=== PATIENT | male | born 1955 ===

== ENCOUNTER 2020-02-27 06:17 | Emergency (ER) | payer OTHER, MEDICAID, SELFPAY ==
--- NOTE | 2020-02-27 06:24 | XRR_ITS ---
PROCEDURE INFORMATION: Exam: XR Chest, 1 View Exam date and time: 02/27/2020 6:48 AM Age: 65 years old Clinical indication: Chest pain; Type not specified; Additional info: Cp TECHNIQUE: Imaging protocol: XR of the chest Views: 1 view. COMPARISON: No relevant prior studies available. FINDINGS: Lungs: Unremarkable. No consolidation. Pleural space: Unremarkable. No pleural effusion. No pneumothorax. Heart/Mediastinum: There is calcification of the aortic arch.. No cardiomegaly. Bones/joints: Unremarkable. XR/XR chest 1V portable [id number] IMPRESSION: No acute findings.
--- NOTE | 2020-02-27 06:24 | ECG_ITS ---
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 Measurements Intervals [place] Rate: 89 P: 67 NC: 145 QRS: 53 QRSD: 83 T: 8 QT: 344 QTc: 419 Interpretive Statements SINUS RHYTHM No previous ECG available for comparison Electronically Signed On 02-27-2020 9:20:58 BUCKLE FRAME SHAPER by Jhoana Dunham M.D. [id number]
[2020-02-27 06:29] VITALS: BP 153/97; PULSE 97; RESP 18; TEMP 36.9; O2SAT 94; BMI 34.2
[2020-02-27 06:45] LABS: Basophils % 0.4 %; Eosinophils # 0.2 10^3/uL (0.0-0.8); Eosinophils % 1.9 %; Hematocrit 45.9 % (42.0-52.0); Hemoglobin 14.6 g/dL (11.7-16.6); Lymphocytes # 1.9 10^3/uL (0.8-4.8); Lymphocytes % 20.6 %; Mean Corpuscular HGB Conc 31.8 g/dL (30.0-36.0); Mean Corpuscular Hemoglobin 28.6 pg (28.0-34.0); Mean Corpuscular Volume 89.8 fL (80-94); Mean Platelet Volume 8.9 fL (7.4-10.4); Monocytes # 0.6 10^3/uL (0.2-0.9); Monocytes % 6.7 %; Neutrophils % 69.8 %; Nucleated Red Blood Cells % 0 %; Platelet Count 219 10^3/cmm (130-400); Red Blood Count 5.11 10^6/uL (4.1-5.3); Red Cell Distribution Width 13.6 % (12.1-15.1); White Blood Count 9.3 10^3/uL (4.0-10.0)
[2020-02-27] MEDS: aspirin 81 mg Chew Tablet 324 MG PO (06:47)
--- NOTE | 2020-02-27 06:47 | W.ED.CHESTPA ---
HPI - Chest Pain General: Chief Complaint: Chest Pain Stated Complaint: CHEST PAIN/COUGH (HX COPD) Time Seen by Provider: 02/27/20 06:23 Source: patient Mode of arrival: ambulatory Limitations: no limitations History of Present Illness: HPI narrative: 65-year-old male who has a history of COPD. He states he started having chest pain last night. States he is also had some right-sided jaw pain that is been sharp in nature. States chest pain does improve with patient denies any shortness of breath. He has had no fevers or a cough. Denies any vomiting or diarrhea. Associated symptoms: Deny abdominal pain, dyspnea, fever(s), nausea or vomiting Review of Systems Const: Denies: fever(s), chills, body aches or change in appetite Eyes: Denies: blurry vision or eye discomfort ENMT: Denies: throat pain or dental pain Card: Reports: chest pain Resp: Denies: dyspnea GI: Denies: abdominal pain, nausea, vomiting or diarrhea : Denies: dysuria Musc: Denies: neck pain or back pain Skin/Breast: Denies: rash Neuro: Denies: headache(s) Psych: Denies: depression Narinder/Lymph: Denies: easy bruising All/Imm: Denies: urticaria Physical Exam Const: COMMON NORMALS: no acute distress, patient oriented x3 and healthy appearing HENMT: COMMON NORMALS: normocephalic and atraumatic HEAD & SCALP: normocephalic and atraumatic Eye: COMMON NORMALS: Equal, round and reactive pupils present and EOMs intact bilaterally PUPIL: Yes Equal, round and reactive pupils present Neck/C-Spine: COMMON NORMALS: full ROM and supple Chest: COMMONS NORMALS: normal inspection of the chest and normal palpation of entire chest wall Resp: COMMON NORMALS: normal respiratory effort, No retractions, No use of accessory muscles and clear to auscultation bilaterally AUSCULTATION: clear to auscultation bilaterally Cardio: COMMON NORMALS: regular rate, regular rhythm and No murmurs present (Cardio) RATE: regular rate RHYTHM: regular rhythm GI: COMMON NORMALS: Normal to inspection, nondistended, normoactive bowel sounds present, Soft to palpation, non-tender and no masses PALPATION: Yes Soft to palpation Extremity: COMMON NORMALS: normal to inspection and full ROM Neuro: COMMON NORMALS: patient oriented x3, moves all extremities and no focal motor deficits Psych: COMMON NORMALS: mental status grossly normal, Normal thought process present and cooperative THOUGHT PROCESS: Normal thought process present Skin: COMMON NORMALS: no rashes or lesions noted and no wounds GENERAL SKIN EXAM: no rashes or lesions noted Course Vital Signs: Vital signs: Vital Signs Temperature 98.5 F 02/27/20 06:29 Pulse Rate 70 02/27/20 09:20 Respiratory Rate 20 H 02/27/20 09:20 Blood Pressure 124/49 02/27/20 09:20 Pulse Oximetry 96 02/27/20 09:21 MDM - Chest Pain MDM Narrative: Medical decision making narrative: Ignacio presents here with chest pain that is atypical in nature. He been pain-free here and second troponin shows no change. X-ray here is normal as well. Also has pain in the right side of his neck. 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 Exam of the area is benign and your exam is normal. CT scan of his neck is negative. 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 He is to return if worsening. He has no signs of pulmonary embolism. Lab Data: Labs: Lab Results 02/27/20 02/27/20 02/27/20 Range/Units 06:37 06:37 06:37 WBC 9.3 (4.0-10.0) 10^3/ uL RBC 5.11 (4.1-5.3) 10^6/u L Hgb 14.6 (11.7-16.6) g/dL Hct 45.9 (42.0-52.0) % MCV 89.8 (80-94) fL MCH 28.6 (28.0-34.0) pg MCHC 31.8 (30.0-36.0) g/dL RDW 13.6 (12.1-15.1) % Plt Count 219 (130-400) 10^3/c mm MPV 8.9 (7.4-10.4) fL Neut % (Auto) 69.8 % Lymph % (Auto) 20.6 % [place] % (Auto) 6.7 % Eos % (Auto) 1.9 % Baso % (Auto) 0.4 % Neut # (Auto) 6.50 (1.8-7.7) 10^3/u L Lymph # (Auto) 1.9 (0.8-4.8) 10^3/u L [place] # (Auto) 0.6 (0.2-0.9) 10^3/u L Eos # (Auto) 0.2 (0.0-0.8) 10^3/u L Baso # (Auto) 0.0 (0.0-0.1) 10^3/u L Nucleated RBC % (a uto) 0 % Nucleated RBCs # 0.0 /100WBC Sodium 138 (136-145) mmol/L Potassium 3.7 (3.5-5.1) mmol/L Chloride 99 (98-107) mmol/L Carbon Dioxide 30 H (22-29) mmol/L Anion Gap 12.7 (5-19) BUN 16 (8-23) mg/dL Creatinine 1.2 (0.7-1.2) mg/dL GFR Calculation 60.4 L (90-130) mL/min Glucose 128 H (65-115) mg/dL Calculated Osmolal ity 289 (285-295) mOsm/k g Calcium 9.1 (8.5-10.5) mg/dL Total Bilirubin 0.5 (0.15-1.2) mg/dL AST 32 (0-40) U/L ALT 59 H (0-41) U/L Alkaline Phosphata se 101 (40-130) IU/L Troponin T Baselin e 32 H (0-15) ng/L Troponin T 120 Min [place] (0-15) ng/L Delta Troponin T (0-10) ABS# Total Protein 7.0 (6.6-8.7) g/dL Albumin 4.3 (3.5-5.2) g/dL Globulin 2.7 (1.3-4.6) g/dL 02/27/20 Range/Units 08:40 WBC (4.0-10.0) 10^3/ uL RBC (4.1-5.3) 10^6/u L Hgb (11.7-16.6) g/dL Hct (42.0-52.0) % MCV (80-94) fL MCH (28.0-34.0) pg MCHC (30.0-36.0) g/dL RDW (12.1-15.1) % Plt Count (130-400) 10^3/c mm MPV (7.4-10.4) fL Neut % (Auto) % Lymph % (Auto) % [place] % (Auto) % Eos % (Auto) % Baso % (Auto) % Neut # (Auto) (1.8-7.7) 10^3/u L Lymph # (Auto) (0.8-4.8) 10^3/u L [place] # (Auto) (0.2-0.9) 10^3/u L Eos # (Auto) (0.0-0.8) 10^3/u L Baso # (Auto) (0.0-0.1) 10^3/u L Nucleated RBC % (a uto) % Nucleated RBCs # /100WBC Sodium (136-145) mmol/L Potassium (3.5-5.1) mmol/L Chloride (98-107) mmol/L Carbon Dioxide (22-29) mmol/L Anion Gap (5-19) BUN (8-23) mg/dL Creatinine (0.7-1.2) mg/dL GFR Calculation (90-130) mL/min Glucose (65-115) mg/dL Calculated Osmolal ity (285-295) mOsm/k g Calcium (8.5-10.5) mg/dL Total Bilirubin (0.15-1.2) mg/dL AST (0-40) U/L ALT (0-41) U/L Alkaline Phosphata se (40-130) IU/L Troponin T Baselin e (0-15) ng/L Troponin T 120 Min [place] 30.56 H (0-15) ng/L Delta Troponin T -1.44 L (0-10) ABS# Total Protein (6.6-8.7) g/dL Albumin (3.5-5.2) g/dL Globulin (1.3-4.6) g/dL Imaging Data^: CXR: Attestation: I personally reviewed and interpreted this imaging study as follows: My impression: no acute abnormality Other CT: Attestation: I personally reviewed and interpreted this imaging study as follows: Radiologist's impression: [address] [place] [address] CT Scan Report Signed Patient: Ignacio Shelton Unit #: [id number] : 1955 Age/Sex: 65 / M ADM Date: 02/27/20 Loc: ER Room/Bed: Attending Dr: Ordering Provider/Ordering MD: Sánchez Dejesus MD Date of Service: 02/27/20 Procedure(s): CT neck w con* [id number] Accession Number(s): [id number] Report Number: [id number] PROCEDURE INFORMATION: Exam: CT Neck With Contrast Exam date and time: 02/27/2020 7:48 AM Age: 65 years old Clinical indication: Neck pain; Prior surgery; Surgery date: 6+ months; Surgery type: Right neck mass, right ear; Additional info: Right neck pain TECHNIQUE: Imaging protocol: Computed tomography images of the neck with intravenous contrast. Radiation optimization: All CT scans at this facility use at least one of these dose optimization techniques: automated exposure control; mA and/or kV adjustment per patient size (includes targeted exams where dose is matched to clinical indication); or iterative reconstruction. Contrast material: OMNIPAQUE 300; Contrast volume: 95 ml; Contrast route: INTRAVENOUS (IV); COMPARISON: CT neck w con* [id number] 07/23/2018 10:13 AM RADIATION DOSE METRICS: Total DLP (mGy-cm): 858.45 FINDINGS: Nasopharynx: Unremarkable. Oropharynx: Unremarkable. No significant tonsillar enlargement. Hypopharynx: Unremarkable. Larynx: Unremarkable. Normal epiglottis. Retropharyngeal space: Unremarkable. Submandibular/Parotid glands: Patient has undergone bilateral parotid surgery. Appears the patient has had right parotidectomy. Thyroid: Normal. No enlarged or calcified nodules. Lymph nodes: No adenopathy or other abnormal masses are seen in the neck. Trachea: Visualized trachea is unremarkable. Lungs: Unremarkable as visualized. Bones/joints: Degenerative disease is present in the cervical spine with joint space narrowing and sclerosis. There is multilevel neural foraminal narrowing predominantly at the C6-C7 level. Soft tissues: There is calcification the carotid bifurcations bilaterally. The aortic arch is calcified. CT/CT neck w con* [id number] IMPRESSION: 1. Patient has undergone bilateral parotid surgery. Right parotidectomy. 2. No mass or adenopathy is seen in the neck. 3. Atherosclerotic calcified aorta and carotid bifurcations. 4. 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 5. No acute abnormalities are seen in the neck. EKG Data^: EKG 1: Attestation: I personally reviewed and interpreted this EKG as follows: EKG interpretation date: 02/27/20 EKG interpretation time: 06:30 Interpretation: nsr hr [address] or t wave abnormalities qrs 83 qtc 390 EKG 2: Attestation: I personally reviewed and interpreted this EKG as follows: EKG interpretation date: 02/27/20 EKG interpretation time: 08:23 Interpretation: nsr hr [address] or t wave abnormalities qrs 91 qtc 405 Discharge Plan Discharge Patient Disposition: Home Clinical Impression: Chest pain Qualifiers: Chest pain type: unspecified Qualified Code(s): R07.9 - Chest pain, unspecified Condition: Stable Discharge Orders: Discharge Order (Routine); Ordered 02/27/20 Ordered By: Sánchez Dejesus Referrals: Elijah Maki DO [Primary Care Provider] - 1-3 days Discharge Diet: Advance as tolerated Discharge Activity: Resume usual activity Patient Instructions: Chest Pain (ED) Coding Level of Care Code ED Machine Straw Hat Presser for Chg Fwd Exam Comprehensive
[2020-02-27 06:48] VITALS: BP 153/97; PULSE 101; RESP 23; O2SAT 93
[2020-02-27 07:17] LABS: Alanine Aminotransferase 59 U/L (0-41); Albumin Level 4.3 g/dL (3.5-5.2); Alkaline Phosphatase 101 IU/L (40-130); Anion Gap 12.7 (5-19); Aspartate Amino Transferase 32 U/L (0-40); Blood Urea Nitrogen 16 mg/dL (8-23); Calcium 9.1 mg/dL (8.5-10.5); Carbon Dioxide 30 mmol/L (22-29); Chloride 99 mmol/L (98-107); Globulin 2.7 g/dL (1.3-4.6); Glomerular Filtration Rate 60.4 mL/min (90-130); Glucose 128 mg/dL (65-115); Osmolality Calculated 289 mOsm/kg (285-295); Potassium 3.7 mmol/L (3.5-5.1); Sodium 138 mmol/L (136-145); Total Bilirubin 0.5 mg/dL (0.15-1.2)
[2020-02-27 07:19] LABS: Troponin(5th) Baseline 32 ng/L (0-15)
--- NOTE | 2020-02-27 07:28 | CTR_ITS ---
PROCEDURE INFORMATION: Exam: CT Neck With Contrast Exam date and time: 02/27/2020 7:48 AM Age: 65 years old Clinical indication: Neck pain; Prior surgery; Surgery date: 6+ months; Surgery type: Right neck mass, right ear; Additional info: Right neck pain TECHNIQUE: Imaging protocol: Computed tomography images of the neck with intravenous contrast. Radiation optimization: All CT scans at this facility use at least one of these dose optimization techniques: automated exposure control; mA and/or kV adjustment per patient size (includes targeted exams where dose is matched to clinical indication); or iterative reconstruction. Contrast material: OMNIPAQUE 300; Contrast volume: 95 ml; Contrast route: INTRAVENOUS (IV); COMPARISON: CT neck w con* [id number] 07/23/2018 10:13 AM RADIATION DOSE METRICS: Total DLP (mGy-cm): 858.45 FINDINGS: Nasopharynx: Unremarkable. Oropharynx: Unremarkable. No significant tonsillar enlargement. Hypopharynx: Unremarkable. Larynx: Unremarkable. Normal epiglottis. Retropharyngeal space: Unremarkable. Submandibular/Parotid glands: Patient has undergone bilateral parotid surgery. Appears the patient has had right parotidectomy. Thyroid: Normal. No enlarged or calcified nodules. Lymph nodes: No adenopathy or other abnormal masses are seen in the neck. Trachea: Visualized trachea is unremarkable. Lungs: Unremarkable as visualized. Bones/joints: Degenerative disease is present in the cervical spine with joint space narrowing and sclerosis. There is multilevel neural foraminal narrowing predominantly at the C6-C7 level. Soft tissues: There is calcification the carotid bifurcations bilaterally. The aortic arch is calcified. CT/CT neck w con* [id number] IMPRESSION: 1. Patient has undergone bilateral parotid surgery. Right parotidectomy. 2. No mass or adenopathy is seen in the neck. 3. Atherosclerotic calcified aorta and carotid bifurcations. 4. 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 5. No acute abnormalities are seen in the neck. Radiation Dose CTDIVOL = (mGy): DLP = 858.45 (mGy-cm)
[2020-02-27] MEDS: iohexol 300 mg/mL 100 mL Btl IV (07:50)
--- NOTE | 2020-02-27 07:54 | PC.NURSE ---
pt back from ct by natasha
--- NOTE | 2020-02-27 08:24 | ECG_ITS ---
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 Measurements Intervals [place] Rate: 76 P: 70 NH: 150 QRS: 72 QRSD: 91 T: 11 QT: 374 QTc: 423 Interpretive Statements SINUS RHYTHM NONSPECIFIC T-WAVE ABNORMALITY Compared to ECG 02/27/2020 06:30:38 T-wave abnormality now present Electronically Signed On 02-27-2020 9:25:43 VEGETABLES COOK by Jhoana Dunham M.D. [email or web address]/[id number]
[2020-02-27 08:32] VITALS: BP 116/86; PULSE 73; RESP 26; O2SAT 96
[2020-02-27 09:20] VITALS: BP 124/49; PULSE 70; RESP 20; O2SAT 82
--- NOTE | 2020-02-27 09:20 | PC.NURSE ---
Pt noted to drop to 82% on room air while sleeping. Pt reports Cpap use at home at night. Pt placed on 2LNC and oxygen sats increased to 96%. Pt denies needs at this time.
[2020-02-27 09:21] VITALS: O2SAT 96
[2020-02-27 09:25] LABS: Troponin 5 2HR 30.56 ng/L (0-15); Troponin 5 2HR Delta -1.44 ABS# (0-10)
[2020-02-27 09:44] VITALS: BP 180/95; PULSE 75; RESP 17; O2SAT 97
== END 2020-02-27 09:44 | disposition home or self-care (01) ==
PROVIDERS: Emergency Provider Emergency Medicine; Family Provider Emergency Medicine Emergency Medical Services; PCP Emergency Medicine Emergency Medical Services
DX: R07.9 Chest pain, unspecified (principal)
CPT/HCPCS: 12345; 36415; 70491; 71045; 80053; 84484; 85025; 93005; 99283; 99284; Q9967

== ENCOUNTER 2021-06-25 22:36 | Inpatient (IN) | payer OTHER, MEDICAID, SELFPAY ==
--- NOTE | 2021-06-25 22:40 | ECG_ITS ---
[facility] Test Date: 2021-06-25 Pat Name: Ignacio Shelton Department: Room: 111 Gender: Male Behavioral Health Specialist: : 1955 Requested By: Sánchez Dejesus Order Number: [id number] Wanda MD: Gonzales Brasher M.D. Measurements Intervals [place] Rate: 69 P: 52 RI: 145 QRS: -9 QRSD: 77 T: -19 QT: 351 QTc: 376 Interpretive Statements SINUS RHYTHM NONSPECIFIC ST & T-WAVE ABNORMALITY Compared to ECG 02/27/2020 08:23:55 No significant changes Electronically Signed On 06-26-2021 17:34:45 SIGNAL MAINTAINER by Gonzales Brasher M.D. [id number] f
--- NOTE | 2021-06-25 22:40 | XRR_ITS ---
PROCEDURE INFORMATION: Exam: XR Chest Exam date and time: 06/25/2021 10:40 PM Age: 66 years old Clinical indication: Chest pressure; Prior surgery; Surgery type: Coronary stents; Patient HX: C/O chest pain. ; Additional info: Cp TECHNIQUE: Imaging protocol: XR of the chest. Views: 1 view. COMPARISON: CR XR chest 1V portable [id number] 02/27/2020 6:39 AM FINDINGS: Lungs: Unremarkable. No consolidation. Pleural spaces: Unremarkable. No pleural effusion. No pneumothorax. Heart/Mediastinum: Cardiomegaly. Bones/joints: Unremarkable. XR/XR chest 1V portable [id number] IMPRESSION: Cardiomegaly, negative for infiltrate
[2021-06-25 22:42] VITALS: BP 149/79; PULSE 105; RESP 18; TEMP 36.5; O2SAT 96; BMI 33.7
--- NOTE | 2021-06-25 22:48 | W.ED.CHESTPA ---
HPI - Chest Pain General: Chief Complaint: Chest Pain Stated Complaint: Possible Heart Attack Time Seen by Provider: 06/25/21 22:39 Source: patient Mode of arrival: ambulatory Limitations: no limitations History of Present Illness: 66-year-old male who states he been having intermittent chest pains over the last 3 weeks. States that he does have a history of coronary artery disease had multiple stents placed he states last on roughly 2 to 3 years ago at [facility]. He states he has been having increasing pain along with shortness of breath along with some leg swelling he has no known history of congestive heart failure does have a history of COPD wears 2 L at baseline. States pain currently is a 2 out of 10 denies any nausea. Denies any fevers. Associated symptoms: Reports dyspnea; Deny abdominal pain, fever(s), nausea or vomiting Review of Systems Const: Denies: fever(s), chills, body aches or change in appetite Eyes: Denies: blurry vision or eye discomfort ENMT: Denies: throat pain or dental pain Card: Reports: chest pain Resp: Reports: dyspnea GI: Denies: abdominal pain, nausea, vomiting or diarrhea : Denies: dysuria Musc: Denies: neck pain or back pain Skin/Breast: Denies: rash Neuro: Denies: headache(s) Psych: Denies: depression Narinder/Lymph: Denies: easy bruising All/Imm: Denies: urticaria PFSH ED PFSH: Medical History (Updated 06/25/21 @ 23:59 by Sánchez Dejesus MD) Coronary artery disease Social History (Updated 06/25/21 @ 22:51 by Sánchez Dejesus MD) Substance/Drug Use: never Physical Exam Const: COMMON NORMALS: patient oriented x3 and healthy appearing HENMT: COMMON NORMALS: normocephalic and atraumatic HEAD & SCALP: normocephalic and atraumatic Eye: COMMON NORMALS: Equal, round and reactive pupils present and EOMs intact bilaterally PUPIL: Yes Equal, round and reactive pupils present Neck/C-Spine: COMMON NORMALS: full ROM and supple Chest: COMMONS NORMALS: normal inspection of the chest and normal palpation of entire chest wall Resp: COMMON NORMALS: normal respiratory effort, No retractions, No use of accessory muscles and clear to auscultation bilaterally AUSCULTATION: clear to auscultation bilaterally Cardio: COMMON NORMALS: regular rate, regular rhythm and No murmurs present (Cardio) RATE: regular rate RHYTHM: regular rhythm GI: COMMON NORMALS: Normal to inspection, nondistended, normoactive bowel sounds present, Soft to palpation, non-tender and no masses PALPATION: Yes Soft to palpation Extremity: COMMON NORMALS: full ROM NARRATIVE EXTREMITY EXAM: 1+ edema Neuro: COMMON NORMALS: patient oriented x3, moves all extremities and no focal motor deficits Psych: COMMON NORMALS: mental status grossly normal, Normal thought process present and cooperative THOUGHT PROCESS: Normal thought process present Skin: COMMON NORMALS: no rashes or lesions noted and no wounds GENERAL SKIN EXAM: no rashes or lesions noted Course Vital Signs: Vital signs: Vital Signs Temperature 97.7 F 06/25/21 22:42 Pulse Rate 72 06/25/21 23:22 Respiratory Rate 16 06/25/21 23:22 Blood Pressure 115/48 06/25/21 23:22 Pulse Oximetry 94 06/25/21 23:22 MDM - Chest Pain Medical Decision Making Patient presents here with chest pain is since resolved he does have an elevated troponin here consistent with a likely NSTEMI CT angio here is negative I spoke to hospital along with student nurse will admit at this time patient given Lovenox here. Lab Data : 06/25/21 22:48 06/25/21 22:48 Radiology Impressions Chest X-Ray 06/25/21 22:40 IMPRESSION: Cardiomegaly, negative for infiltrate Chest CTA 06/25/21 23:11 IMPRESSION: 1. Negative for pulmonary embolus. 2. Scattered prominent mediastinal lymph nodes measuring up to 12.5 mm, nonspecific. 3. Bilateral renal cysts, negative for follow-up advised. 4. Mild emphysematous changes suspected. 5. Lingular atelectasis. 6. Coronary artery atherosclerotic calcifications. Laboratory Results WBC 8.7 10^3/uL (4.0-10.0) 06/25/21 22:48 RBC 4.47 10^6/uL (4.1-5.3) 06/25/21 22:48 Hgb 13.1 g/dL (11.7-16.6) 06/25/21 22:48 Hct 41.9 % (42.0-52.0) L 06/25/21 22:48 MCV 93.7 fl (80-94) 06/25/21 22:48 MCH 29.3 pg (28.0-34.0) 06/25/21 22:48 MCHC 31.3 g/dL (30.0-36.0) 06/25/21 22:48 RDW 13.3 % (12.1-15.1) 06/25/21 22:48 Plt Count 213 10^3/cmm (130-400) 06/25/21 22:48 MPV 9.0 fL (7.4-10.4) 06/25/21 22:48 Neut % (Auto) 76.9 % 06/25/21 22:48 Lymph % (Auto) 12.3 % 06/25/21 22:48 [place] % (Auto) 6.9 % 06/25/21 22:48 Eos % (Auto) 3.0 % 06/25/21 22:48 Baso % (Auto) 0.6 % 06/25/21:48 Neut # (Auto) 6.67 10^3/uL (1.8-7.7) 06/25/21 22:48 Lymph # (Auto) 1.1 10^3/uL (0.8-4.8) 06/25/21 22:48 [place] # (Auto) 0.6 10^3/uL (0.2-0.9) 06/25/21 22:48 Eos # (Auto) 0.3 10^3/uL (0.0-0.8) 06/25/21 22:48 Baso # (Auto) 0.1 10^3/uL (0.0-0.1) 06/25/21 22:48 Nucleated RBC % (auto) 0 % 06/25/21:48 Nucleated RBCs # 0.0 /100WBC 06/25/21 22:48 PT 13.10 SECONDS (12.1-14.9) 06/25/21 22:48 INR 0.96 (0.8-1.2) 06/25/21 22:48 D-Dimer 0.96 ug/mIFEU (0-0.59) H 06/25/21 22:48 Sodium 137 mmol/L (136-145) 06/25/21 22:48 Potassium 4.1 mmol/L (3.5-5.1) 06/25/21 22:48 Chloride 97 mmol/L (98-107) L 06/25/21 22:48 Carbon Dioxide 27 mmol/L (22-29) 06/25/21 22:48 Anion Gap 17.1 (5-19) 06/25/21 22:48 BUN 13 mg/dL (8-23) 06/25/21 22:48 Creatinine 1.1 mg/dL (0.7-1.2) 06/25/21 22:48 GFR Calculation 66.6 mL/min (90-130) L 06/25/21 22:48 Glucose 277 mg/dL (65-115) H 06/25/21 22:48 Calculated Osmolality 294 mOsm/kg (285-295) 06/25/21 22:48 Calcium 9.2 mg/dL (8.5-10.5) 06/25/21 22:48 Total Bilirubin 0.4 mg/dL (0.15-1.2) 06/25/21 22:48 AST 26 U/L (0-40) 06/25/21 22:48 ALT 22 U/L (0-41) 06/25/21 22:48 Alkaline Phosphatase 77 IU/L (40-130) 06/25/21 22:48 Troponin T Baseline 404 ng/L (0-15) H* 06/25/21 22:48 NT-Pro-B Natriuret Pep 575 pg/mL (0-125) H 06/25/21 22:48 Total Protein 6.9 g/dL (6.6-8.7) 06/25/21 22:48 Albumin 4.1 g/dL (3.5-5.2) 06/25/21 22:48 Globulin 2.8 g/dL (1.3-4.6) 06/25/21 22:48 EKG Data EKG 1: I personally reviewed and interpreted this EKG as follows: EKG interpretation date: 06/25/21 EKG interpretation time: 22:46 Interpretation: nsr hr [address] or t wave abnormalities qrs 77 qtc 370 Discharge Plan Discharge Patient Disposition: Admitted As Inpatient Clinical Impression: Non-ST elevation NC (NSTEMI) Coding Level of Care Code ED Hand Method Lasting Machine Operator for Chg Fwd Exam Comprehensive
[2021-06-25 22:52] LABS: Basophils # 0.1 10^3/uL (0.0-0.1); Basophils % 0.6 %; Eosinophils # 0.3 10^3/uL (0.0-0.8); Hematocrit 41.9 % (42.0-52.0); Hemoglobin 13.1 g/dL (11.7-16.6); Lymphocytes # 1.1 10^3/uL (0.8-4.8); Lymphocytes % 12.3 %; Mean Corpuscular HGB Conc 31.3 g/dL (30.0-36.0); Mean Corpuscular Hemoglobin 29.3 pg (28.0-34.0); Mean Corpuscular Volume 93.7 fl (80-94); Monocytes # 0.6 10^3/uL (0.2-0.9); Monocytes % 6.9 %; Neutrophils # 6.67 10^3/uL (1.8-7.7); Neutrophils % 76.9 %; Nucleated Red Blood Cells % 0 %; Platelet Count 213 10^3/cmm (130-400); Red Blood Count 4.47 10^6/uL (4.1-5.3); Red Cell Distribution Width 13.3 % (12.1-15.1); White Blood Count 8.7 10^3/uL (4.0-10.0)
[2021-06-25 23:04] LABS: INR 0.96 (0.8-1.2)
[2021-06-25 23:07] LABS: D Dimer 0.96 ug/mIFEU (0-0.59)
[2021-06-25] MEDS: aspirin 81 mg Chew Tablet 324 MG PO (23:11)
--- NOTE | 2021-06-25 23:11 | CTR_ITS ---
PROCEDURE INFORMATION: Exam: CTA Chest With Contrast Exam date and time: 06/25/2021 11:11 PM Age: 66 years old Clinical indication: Pain and abnormal findings; Abnormal diagnostic tests; Elevated d-dimer; Chest pressure; Prior surgery; Surgery type: Coronary stents; Patient HX: Chest pain with elevated d dimer. ; Additional info: SOB TECHNIQUE: Imaging protocol: Computed tomographic angiography of the chest with contrast. 3D rendering (Not supervised by radiologist): MIP and/or 3D reconstructed images were created by the technologist. Radiation optimization: All CT scans at this facility use at least one of these dose optimization techniques: automated exposure control; mA and/or kV adjustment per patient size (includes targeted exams where dose is matched to clinical indication); or iterative reconstruction. Contrast material: OMNI 350; Contrast volume: 61 ml; Contrast route: INTRAVENOUS (IV); COMPARISON: CR (CHEST, ) 06/25/2021 10:50 PM RADIATION DOSE METRICS: Total DLP (mGy-cm): 557.87 FINDINGS: Pulmonary arteries: Normal. No pulmonary emboli. Aorta: Unremarkable. No aortic aneurysm. No aortic dissection. Lungs: Mild emphysematous changes suspected. Lingular atelectasis. Pleural spaces: Unremarkable. No pneumothorax. No pleural effusion. Heart: Coronary artery atherosclerotic calcifications. Lymph nodes: Scattered prominent mediastinal lymph nodes measuring up to 12.5 mm, nonspecific. Kidneys and ureters: Bilateral renal cysts, negative for follow-up advised. Bones/joints: Unremarkable. No acute fracture. Soft tissues: Unremarkable. CT/CT angio chest PE protcl [id number] IMPRESSION: 1. Negative for pulmonary embolus. 2. Scattered prominent mediastinal lymph nodes measuring up to 12.5 mm, nonspecific. 3. Bilateral renal cysts, negative for follow-up advised. 4. Mild emphysematous changes suspected. 5. Lingular atelectasis. 6. Coronary artery atherosclerotic calcifications.
[2021-06-25 23:21] LABS: Troponin(5th) Baseline 404 ng/L (0-15)
[2021-06-25 23:22] VITALS: BP 115/48; PULSE 72; RESP 16; O2SAT 94
[2021-06-25 23:23] LABS: Alanine Aminotransferase 22 U/L (0-41); Albumin Level 4.1 g/dL (3.5-5.2); Alkaline Phosphatase 77 IU/L (40-130); Anion Gap 17.1 (5-19); Aspartate Amino Transferase 26 U/L (0-40); Blood Urea Nitrogen 13 mg/dL (8-23); Calcium 9.2 mg/dL (8.5-10.5); Carbon Dioxide 27 mmol/L (22-29); Chloride 97 mmol/L (98-107); Globulin 2.8 g/dL (1.3-4.6); Glomerular Filtration Rate 66.6 mL/min (90-130); Glucose 277 mg/dL (65-115); NT Pro B Type Natriuretic Pept 575 pg/mL (0-125); Osmolality Calculated 294 mOsm/kg (285-295); Potassium 4.1 mmol/L (3.5-5.1); Sodium 137 mmol/L (136-145); Total Bilirubin 0.4 mg/dL (0.15-1.2); Total Protein 6.9 g/dL (6.6-8.7)
[2021-06-25] MEDS: iohexol 350 mg/mL 100 mL Btl IV (23:33)
[2021-06-25] MEDS: enoxaparin 100 mg/mL Syringe SUBCUT (23:39)
[2021-06-26] VITALS (61 sets, daily range): BP systolic 105–176; BP diastolic 9–98; PULSE 57–93; RESP 14–30; TEMP 35.8–36.6; O2SAT 87–99; BMI 33.7
--- NOTE | 2021-06-26 00:28 | USCV_ITS ---
Ignacio Shelton Age: 66 Gender: M : 1955 Exam Date: 06/26/2021 03:12 Ordering Phys: Nikki Mace MD Technologist: João Whittaker [place] [facility] [place]: [place] BP: 139 / 70 HR: 70 Rhythm: Sinus Technical Quality: Adequate MEASUREMENTS (Male / Female) Normal Values 2D ECHO LV Diastolic Diameter PLAX 4.0 cm 4.2 - 5.9 / 3.9 - 5.3 cm LV Systolic Diameter PLAX 2.6 cm IVS Diastolic Thickness 1.4 cm 0.6 - 1.0 / 0.6 - 0.9 cm IVS Systolic Thickness 1.7 cm LVPW Diastolic Thickness 2.1 cm 0.6 - 1.0 / 0.6 - 0.9 cm LVPW Systolic Thickness 1.7 cm LVOT Diameter 2.5 cm LV Ejection Fraction 2D Teich 64.3 % LV Ejection Fraction MOD 2C 58.9 % LV Ejection Fraction 2C AL 60.2 % LA Diameter 3.9 cm LA Width 5.1 cm LA Height 5.1 cm RA Width 3.3 cm RA Height 5.8 cm Aorta at Sinotubular Diameter 2.6 cm M-MODE Aortic Annulus Diameter 3.5 cm LA Ao Ratio MM 1.3 MV E Point Septal Separation 1.4 cm DOPPLER AV Peak Velocity 163.8 cm/s LVOT Peak Velocity 91.0 cm/s AV Area Cont Eq vti 2.5 cm squared AV Area Cont Eq pk 2.7 cm squared MV Peak Velocity 111.0 cm/s MV Area PHT 3.2 cm squared Mitral E to A Ratio 1.0 MV E' Velocity 57.5 cm/s Mitral E to MV E' Ratio 9.9 Mitral E to LV E' Lateral Ratio 8.0 Mitral E to LV E' Septal Ratio 13.1 TR Peak Velocity 200.7 cm/s TR Peak Gradient 16.1 mmHg TR Mean Velocity 169.0 cm/s TR Mean Gradient 12.9 mmHg TR Velocity Time Integral 53.5 cm Right Atrial Pressure 10.0 mmHg Pulmonary Artery Systolic Pressu 26.1 mmHg PV Peak Velocity 119.0 cm/s RV Acceleration Time 0.1 s RV Ejection Time 0.3 s RV AcT/ET 0.4 FINDINGS Left Ventricle Normal left ventricular size. LV systolic function is normal with EF of 55-60%. No regional wall motion abnormalities. Diastolic function is normal Right Ventricle The right ventricle is normal in size and function. Right Atrium The right atrium is normal in size. Left Atrium The left atrium is normal in size. Mitral Valve Structurally normal mitral valve without significant stenosis or prolapse. There is trace mitral regurgitation. Aortic Valve Aortic valve is thickened. No significant stenosis. There is mild aortic regurgitation. Tricuspid Valve Structurally normal tricuspid valve without significant stenosis or regurgitation. Insufficient TR jet to calculate RVSP Pulmonic Valve Not well visualized Pericardium Normal pericardium without effusion. Aorta Normal ascending aorta dimension. CONCLUSIONS LV systolic function is normal with EF of 55-60% Diastolic function is normal Trace mitral regurgitation Aortic valve is thickened. Mild aortic regurgitation No comparison studies are available Gonzales Brasher MD (Electronically Signed) Final Date: 26 June 2021 17:26 S
--- NOTE | 2021-06-26 00:30 | PM.HP ---
Providers/Chief Complaint Admitting Physician: Nikki Mace MD Primary Care Provider: Elijah Maki DO Chief Complaint: Possible Heart Attack History of Present Illness Ignacio Shelton is a 66 year old male with PMh HTN and CAD status post cardiac stent today at [facility] 3 years ago. Presented to the ER today complaining of chest pain which started about 1 week ago. Reports that this is mostly with exertion, no significant benefit with rest. Denies any current radiation. Patient has COPD and a chronic cough, states cough is not significantly changed from his baseline. He is requiring 2 L/min supplemental O2. States he takes both aspirin and Plavix, however I do not have a drug list at this present time for review. Diagnostics in the ER today shows sinus rhythm with occasional VPCs baseline troponin is at 400, 2-hour troponin at 439, positive delta at 2 hours of 35.4. Denies any current chest pain at time of assessment. Review of Systems General: Reports: 10 or more systems reviewed and unremarkable except in HPI and below Const: Denies: fever(s), chills or body aches Eyes: Denies: change in vision, blurry vision or photophobia ENMT: Reports: hoarseness; Denies: throat pain, enlarged tonsils, odynophagia or nasal congestion Card: Denies: chest pain, palpitations, irregular heart rhythm, edema, swelling of feet/ankles, lightheadedness, pre-syncope, dyspnea on exertion or orthopnea Resp: Denies: dyspnea, productive cough, non-productive cough, wheezing, stridor, pain on inspiration, change in phlegm color, hemoptysis or chest congestion GI: Denies: abdominal pain, nausea, vomiting, hematemesis, coffee ground emesis, dysphagia, heartburn, diarrhea, constipation, GI cramping, change in stool character, hematochezia or melena : Denies: flank pain, dysuria, urinary frequency, urinary urgency, urinary hesitancy or hematuria Musc: Denies: neck pain, back pain, extremity pain, joint swelling, joint warmth or deformity Neuro: Denies: headache(s), numbness in extremities, weakness in extremities, sensory changes, difficulty walking, frequent falls, dizziness, vertigo, behavioral changes, Slurred speech present or seizure-like activity Psych: Denies: anxiety, depression, suicidal ideation or homicidal ideation Endo: Denies: polyuria, polydipsia, tired all the time, cold intolerance or hot flashes Narinder/Lymph: Denies: easy bruising or easy bleeding Medications/Allergies Allergies Allergy/AdvReac Type Severity Reaction Status Date / Time codeine Allergy ADR-Seizure Verified 06/25/21 22:42 PFSH Acute PFSH: Medical History (Updated 06/26/21 @ 06:55 by Nikki Mace MD) Coronary artery disease Social History Substance/Drug Use: never Vitals/I&O/Wt Last Vital Signs Temp 97.7 F 06/25/21 22:42 Pulse 72 06/25/21 23:22 Resp 16 06/25/21 23:22 BP 115/48 06/25/21 23:22 Pulse Ox 94 06/25/21 23:22 Weight last 48 hrs Weight 103.873 kg Physical Exam Const: COMMON NORMALS: no acute distress, average body habitus, patient oriented x3, no limitations, healthy appearing, alert and well nourished HENMT: COMMON NORMALS: normocephalic and atraumatic HEAD & SCALP: normocephalic and atraumatic Eye: COMMON NORMALS: Equal, round and reactive pupils present, EOMs intact bilaterally, conjunctivae normal and no scleral icterus CONJUNCTIVA: Yes conjunctivae normal PUPIL: Yes Equal, round and reactive pupils present Neck/C-Spine: COMMON NORMALS: no JVD Resp: COMMON NORMALS: normal respiratory effort, No retractions, No use of accessory muscles, clear to auscultation bilaterally and percussion normal AUSCULTATION: clear to auscultation bilaterally PERCUSSION: percussion normal Cardio: COMMON NORMALS: no JVD, regular rate, regular rhythm, S1 normal heart sound present, S2 normal heart sound present, No gallops present (Cardio), No clicks present (Cardio), No murmurs present (Cardio), No rub (Cardio) and Peripheral pulses 2+ throughout RATE: regular rate RHYTHM: regular rhythm HEART SOUNDS: S1 normal heart sound present and S2 normal heart sound present PERIPHERAL PULSES: Peripheral pulses 2+ throughout GI: COMMON NORMALS: Normal to inspection, nondistended, normoactive bowel sounds present, Soft to palpation, non-tender, No hepatosplenomegaly present, no masses and no bruits PALPATION: Yes Soft to palpation and Yes No hepatosplenomegaly present Extremity: COMMON NORMALS: normal to inspection, full ROM, capillary refill normal, no joint enlargement, no clubbing, cyanosis or edema, no calf tenderness and no pedal edema Neuro: COMMON NORMALS: patient oriented x3, CN's II-XII intact bilaterally, moves all extremities, no focal motor deficits, no sensory deficits noted, deep tendon reflexes 2+ bilaterally and gait normal SENSORIUM/ORIENTATION: Yes alert Psych: COMMON NORMALS: mental status grossly normal, Normal thought process present, cooperative, normal affect, speech normal, activity/motor behavior normal, denies hallucinations, denies homicidal ideation and denies suicidal ideation SPEECH: Yes normal speech THOUGHT PROCESS: Normal thought process present Skin: COMMON NORMALS: no rashes or lesions noted, no wounds, turgor normal, no jaundice, no petechiae and no mottling GENERAL SKIN EXAM: no rashes or lesions noted and turgor normal Data : 06/25/21 22:48 06/25/21 22:48 A&P Assessment and plan (1) Non-ST elevation NE (NSTEMI): Admit to CSU in view of NSTEMI. Given first dose of full dose Lovenox and aspirin 325 mg. Continue aspirin 81 mg p.o. daily, start atorvastatin 40 mg p.o. at bedtime. Obtain medication list, patient states he is also additionally on Plavix. States being compliant with all his medications but that his knows more details about his medication list. Continue anticoagulation with Lovenox 1 mg/kg every 12 hours. CTA negative for PE. Currently oxygen requirement between room air to 2 L/min which patient states is his baseline. As needed DuoNeb inhalation for COPD, not currently in exacerbation. Check echocardiogram Cardiology has been consulted from ER, pending evaluation. NPO for possible cath records requested from [facility] related to last angiogram Status: Acute Attestations Medical Necessity Statement*: >2midnight admission anticipated for management of NSTEMI Coding Level of Care Code Acute Senior Sales Compensation Analyst for [facility] Diagnoses Non-ST elevation NE (NSTEMI) I21.4
--- NOTE | 2021-06-26 00:40 | ECG_ITS ---
[facility] Test Date: 2021-06-26 Pat Name: Ignacio Shelton Department: Room: 111 Gender: Male Hoister: : 1955 Requested By: Sánchez Dejesus Order Number: [id number] Wanda MD: Gonzales rBasher M.D. Measurements Intervals [place] Rate: 56 P: 72 RI: 167 QRS: 13 QRSD: 80 T: 59 QT: 392 QTc: 380 Interpretive Statements SINUS BRADYCARDIA Compared to ECG 02/27/2020 08:23:55 Sinus rhythm no longer present T-wave abnormality no longer present Electronically Signed On 06-26-2021 17:39:58 COMPUTER ASSISTANT by Gonzales Brasher M.D. [email or web address] medical specialty hospital - [email or web address]/[id number]
[2021-06-26 01:51] LABS: Estmated Average Glucose 123; Hemoglobin A1C 5.9 % (4.0-6.0)
[2021-06-26 02:10] LABS: Troponin 5 2HR 439.4 ng/L (0-15); Troponin 5 2HR Delta 35.4 ABS# (0-10)
[2021-06-26 02:29] LABS: Chol HDL Ratio 2.23 mg/dL (1.0-5.00); Cholesterol 118 mg/dL (0-200); HDL Cholesterol 53 mg/dL (60-100); LDL Cholesterol Calculated 28 mg/dL (50-129); LDL HDL Ratio 0.53 RATIO (0.00-3.22); Triglycerides 183 mg/dL (0-150)
--- NOTE | 2021-06-26 04:40 | ECG_ITS ---
[facility] Test Date: 2021-06-26 Pat Name: Ignacio Shelton Department: Room: 111 Gender: Male Medical Editor: : 1955 Requested By: Sánchez Dejesus Order Number: [id number] Wanda MD: Gonzales Brasher M.D. Measurements Intervals [place] Rate: 63 P: 68 WV: 163 QRS: 1 QRSD: 96 T: 64 QT: 397 QTc: 407 Interpretive Statements SINUS RHYTHM WITH OCCASIONAL SUPRAVENTRICULAR PREMATURE COMPLEXES Compared to ECG 06/26/2021 00:50:11 Sinus bradycardia no longer present Electronically Signed On 06-26-2021 17:39:35 BACK SEWER by Gonzales Brasher M.D. [id number]
[2021-06-26 05:13] LABS: Troponin 5 6HR 459.8 ng/L (0-15); Troponin 5 6HR Delta 55.8 ng/L (0-12)
--- NOTE | 2021-06-26 05:15 | PC.NURSE ---
All critical troponin values immediately reported to senior talent management consultant hospitalist. No new orders at this time. Continuous monitoring in place.
--- NOTE | 2021-06-26 08:02 | P.CONIM_ITS ---
Providers/Reason For Consult Consulting Physician/Specialty*: Gonzales Brasher MD/ Cardiology Reason for Consult*: NSTEMI Requesting Physician: Dr Dejesus Attending Physician: Jc Boyd MD Primary Care Provider: Elijah Maki DO History of Present Illness History of Present Illness 66-year-old man with past medical history of coronary artery disease status post multiple PCI's in the past last one about 3 years ago, diabetes, peripheral artery disease,hypertension has presented with on and off chest discomfort episodes that started about a week ago. Mostly exertional however yesterday started having constant chest pressure. On admission his such EKG showed normal sinus rhythm specific ST-T wave changes. His initial troponin was 400 that trended up to 460 at 6 hours. His chest pressure has subsided now. On tele metry he has occasional PVCs. Review of Systems 2 Narrative: CONSTITUTIONAL: No fever chills weight loss or gain or night sweats. [] HEENT: Normocephalic, atraumatic.[] RESPIRATORY: No cough, sputum, hemoptysis or wheezing.[] CARDIOVASCULAR: Chest pain and shortness of breath. GI: no nausea vomiting diarrhea. [] REFRIGERATION HOUSEMAN: No numbness, tingling, weakness or loss of function in any part of the body. [] MUSCULOSKELETAL: No knee or joint pain or rashes. [] Medications/Allergies Home Medications Medication Instructions Recorded Confirmed Last Taken Type acetaminophen 500 mg tablet 1,000 mg PO Q6H PRN 06/26/21 06/26/21 Unknown Histor y albuterol sulfate 90 mcg/actuation 2 puff INHALATION Q4H PRN 06/26/21 06/26/21 Unknown History aerosol inhaler (ProAir HFA) amlodipine 10 mg tablet 10 mg PO DAILY 06/26/21 06/26/21 Unknown History aspirin 325 mg tablet 325 mg PO DAILY 06/26/21 06/26/21 Unknown History cholecalciferol (vitamin D3) 50 50 mcg PO DAILY 06/26/21 06/26/21 Unknown History mcg (2,000 unit) capsule (Vitamin D3) cilostazol 100 mg tablet 50 mg PO BID 06/26/21 06/26/21 Unknown History clopidogrel 75 mg tablet (Plavix) 75 mg PO DAILY 06/26/21 06/26/21 Unknown History furosemide 40 mg tablet 40 mg PO BID 06/26/21 06/26/21 Unknown History gabapentin 300 mg capsule 300 mg PO QID 06/26/21 06/26/21 Unknown History glipizide 5 mg tablet 5 mg PO QAM 06/26/21 06/26/21 Unknown History isosorbide mononitrate 60 mg See Rx Instructions .ROUTE .COMPLEX 06/26/21 06/26/21 Unknown History tablet,extended release 24 hr lisinopril 40 mg tablet 20 mg PO DAILY 06/26/21 06/26/21 Unknown History metformin 1,000 mg tablet 500 mg PO BID 06/26/21 06/26/21 Unknown History metoprolol tartrate 50 mg tablet 25 mg PO BID 06/26/21 06/26/21 Unknown History naproxen 500 mg tablet 500 mg PO BID 06/26/21 06/26/21 Unknown History nitroglycerin 0.4 mg sublingual 0.4 mg SUBLINGUAL Q5M PRN 06/26/21 06/26/21 Unknown History tablet (Nitrostat) omeprazole 20 mg capsule,delayed 20 mg PO BID 06/26/21 06/26/21 Unknown History release potassium chloride 10 mEq 10 meq PO DAILY 06/26/21 06/26/21 Unknown History capsule,extended release rosuvastatin 10 mg tablet (Crestor) 5 mg PO QPM 06/26/21 06/26/21 Unknown History tiotropium bromide 18 mcg capsule 1 cap INHALATION DAILY 06/26/21 06/26/21 Unknown History with inhalation device (Spiriva with HandiHaler) Allergies Allergy/AdvReac Type Severity Reaction Status Date / Time codeine Allergy ADR-Seizure Verified 06/25/21 22:42 Current Medications Generic Name Dose Route Start Last Admin Trade Name Freq PRN Reason Stop Dose Admin Albuterol/Ipratropium 3 ml 06/26/21 07:00 06/26/21 07:33 Ipratropium-Albuterol 3 Ml Neb INHALATION Not Given Q6H.RESPIRATORY YENI Atorvastatin Calcium 40 mg 06/26/21 00:30 06/26/21 00:56 Atorvastatin 40 Mg Tablet PO Not Given BEDTIME YENI PFSH Acute PFSH: Medical History Coronary artery disease Hypertension Surgical History H/O peripheral artery bypass Social History Substance/Drug Use: never Vitals/I&O/Wt Last Vital Signs Temp 96.4 F L 06/26/21 07:47 Pulse 67 06/26/21 07:47 Resp 19 H 06/26/21 07:47 BP 148/77 06/26/21 07:47 Pulse Ox 90 06/26/21 07:47 Weight last 48 hrs Weight 228 lb 1.6 oz Weight 229 lb Physical Exam Narrative: GENERAL: Patient is alert, awake and oriented x3. [] NECK: No jugular vein distension. [] HEENT: No cyanosis. No icterus. No pallor. [] HEART: Regular S1 and S2. No murmur, rub or gallop. [] LUNGS: Clear to auscultate bilaterally. [] ABDOMEN: Soft, nontender and nondistended. Positive bowel sounds. No guarding, rebound or tenderness. [] CENTRAL NERVOUS SYSTEM: Grossly nonfocal. [] EXTREMITIES: Lower extremities with 1+ edema bilaterally. Pulses palpable in the lower extremities, both dorsalis pedis and posterior tibial. [] Data : 06/25/21 22:48 06/25/21 22:48 A&P Assessment and plan (1) Non-ST elevation AR (NSTEMI): Status: Acute (2) Coronary artery disease: Status: Acute (3) Hypertension: Status: Acute (4) Diabetes: Status: Acute Plan Patient has significant coronary artery disease history and has presented with non-ST elevation AR. His troponin elevation was significant and has typical chest pain. We will proceed with coronary angiogram with possible percutaneous coronary intervention. I have discussed the risks and benefits of the procedure with the patient. He understands the risks and benefits and wants to proceed with the procedure. Continue current medications including Lovenox Continue aspirin Order echocardiogram N.p.o. for now. Thank you for involving us with care of this patient. We will continue to follow. Please call with questions. Coding Level of Care Code Acute Economic Analysis Director for [facility] Diagnoses Non-ST elevation AR (NSTEMI) I21.4 Coronary artery disease I25.10 Hypertension I10 Diabetes E11.9
[2021-06-26] MEDS: pantoprazole DR 40 mg Tablet PO (08:54)
[2021-06-26] MEDS: aspirin 81 mg EC Tablet PO (08:54)
[2021-06-26] MEDS: sodium chloride 0.9% 1,000 ML 50 ML IV (08:54)
[2021-06-26] MEDS: diphenhydrAMINE 50 mg Capsule PO (08:54)
[2021-06-26] MEDS: ipratropium-albuterol 3 mL Neb INHALATION (09:17)
--- NOTE | 2021-06-26 09:20 | PC.PHAR ---
pt unable to verify medications-pt states his takes care of his medications along with his nurse-called pts cindy [phone] went to a voicemail pt states he had a new number [phone] but couldnt remember the rest of the number-medications entered [facility] and [facility] ext med history shows has been filled recently-pt states he doesnt take any kind of insulin-
--- NOTE | 2021-06-26 09:32 | XACV_ITS ---
Exam Room: [facility] Ht: 175 cm Wt: 104 kg BSA: 2.28 m2 Gender: Male : 1955 Any Known Allergies: Codeine Exam Priority: Routine Procedure(s): Procedure Description: Diagnostic procedure Procedure Description: PCI procedure Procedure Description: Drug Eluting Coronary Stent Procedure Description: PTCA Procedure Description: Miscellaneous Procedure Description: ACT Procedure Description: Coronary Angiography Diagnostic Cath Status: Urgent Diagnostic Findings * Circumflex has no significant disease. * Proximal Left Anterior Descending to Mid Left Anterior Descending: obstructive 70% stenosis, MAMTA: 3 flow. Apical LAD has subtotal occlusion.. * INDICATION: NSTEMI. * Left Main has no disease. * Mid Left Anterior Descending: obstructive 70% stenosis, MAMTA: 3 flow. * Mid Right Coronary Artery: obstructive 70% stenosis, MAMTA: 3 flow. * Coronary angiography shows right dominance. PCI Status: Urgent PCI Indication: NSTE - ACS Interventional Findings * PROCEDURE DETAIL: We engaged RCA with JR4 catheter. IV heparin was administered to maintain an ACT of 250 S. we advanced a 0.014 run-through guidewire to distal RCA. Mid RCA stenosis was predilated with 2.5 x 12 mm noncompliant balloon. This was followed by predilation with a 3.0 x 12 mm semicompliant balloon. We then placed 3.0 x 18 mm resolute Dayton stent. Another stent measuring 3.0 x 15 mm was deployed proximally. 3.25 x 12 mm trek noncompliant balloon was used to post dilate the stents. We then turned our attention to the proximal to mid LAD stenosis. It was eccentric lesion. We confirmed it with IFR value of 0.45. We then performed balloon angioplasty followed by placement of 4.0 x 30 mm resolute Gregory stent proximally and 3.5 x 22 mm stent in the mid segment overlapping with the first stent. At this time final angiogram was performed that showed excellent stent expansion with no residual stenosis and MAMTA-3 flow. Patient left the Debubblizer in a stable condition.. * Proximal Left Anterior Descending to Mid Left Anterior Descendin% stenosis treated with a MDT NC EUPHORA RX 3.75R63TY BALLOON, and MDT Resolute Gregory BUCK 4.0x30. 0% residual stenosis, MAMTA: 3 flow. * Mid Left Anterior Descendin% stenosis treated with a MDT R GREGORY 3.5X22 BUCK. 0% residual stenosis, MAMTA: 3 flow. * Mid Right Coronary Artery: 70% stenosis treated with a AB TREK 2.50X12 RX BALLOON, AB TREK 3.00X12 RX BALLOON, MDT R GREGORY 3.0X18 BUCK, MDT R GREGORY 3.0X15 BUCK, and MDT NC EUPHORA RX 3.80G25IM BALLOON. 0% residual stenosis, MAMTA: 3 flow. Conclusions 1. Status post successful revascularization of LAD with BUCK x2. Successful revascularization of RCA with BUCK x2. 2. There is obstructive coronary artery disease with two vessel disease. LAD stenosis confirmed with ischemic iFR value of 0.45. Recommendations * Transfer to [facility]. * Aspirin and Plavix for at least 1 year. * High intensity statin therapy. * Outpatient cardiology follow-up in 4 weeks. Interventional RX Recommendation: PCI w/o planned CABG Diagnostic RX Recommendation: PCI w/o planned CABG Anticoagulation: Heparin Pressures Phase:Rest AO : 124 / 77 ( 98 ) @ 11:20:00 AM 135 / 69 ( 98 ) @ 11:30:00 AM 93 / 44 ( 65 ) @ 12:05:00 PM 134 / 72 ( 96 ) @ 12:26:00 PM 106 / 77 ( 91 ) @ 12:30:00 PM 135 / 72 ( 100 ) @ 12:40:00 PM Clinical Evaluation EBL: 5mL-10mL Procedural Details Procedure Consent Obtained. Admit Source: In Patient. Pre-Procedure Time Out. Identified patient by full name and date of as verbalized by the patient/guarantor. Does the consent match the physician's order: Yes. Accurate & Complete Informed Consent: Yes. Inpatient/Outpatient History & Physical on Chart: Yes. If H&P is completed, is and addenduem needed: N/A; If yes, is the addendum complete: N/A. Visualize and Verify Site with Patient/Guarantor: N/A. Relevant Radiology Images available: N/A. Pre-op teaching completed and patient verbalized understanding. The risks, benefits, and alternatives of sedation and/or procedure were discussed by physician. The patient agrees to continue. Procedure started. [facility] Clinical Fraility Score: 4: Vulnerable. Debubblizer Indications: Worsening Angina. Chest Pain Symptom Assessment: Atypical Angina. Correct patient, site and procedure confirmed by cath team. Current diagnosis: NSTEMI. PERRLA. 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 Lungs clear x 5 lobes. IV Site on Arrival: 20 gauge in the left anticubital. IV Fluids: 0.9% NaCl at KVO. 0 mL infused prior to sleep lab technologist. Pre Procedural Pulses: bilateral dorsalis pedis was Doppled. Oxygen started at 2liters/min via nasal canula. right groin was prepped with chloroprep then draped in the usual sterile fashion. right radial was prepped with chloroprep then draped in the usual sterile fashion. Baseline sample Acquired. HR: 64 BPM. Physician notified. Physician arrived. Physician scrubbed in. Immediate Pre-Procedure Time Out. Correct Patient: Yes; Correct Procedure: Yes; Correct Site: Yes; Correct Patient Position: Yes; Correct Supplies: Yes; Dried Flammable Prep: Yes; Blood Products Available: N/A;. Lidocaine 1% infiltrated to the right radial. Arterial access obtained. A 5 cuban TIG catheter in over wire. Wire out. Glidewire inserted. Wire and catheter removed. A TR Band was successful obtaining hemostatsis at the Right Radial artery insertion site. right groin was prepped with chloroprep then draped in the usual sterile fashion. Lidocaine 1% infiltrated to the right groin. Arterial access obtained with micropuncture set. Unable to advance wire. Wire and needle out, manual compression held. left groin was prepped with chloroprep then draped in the usual sterile fashion. Arterial access obtained with micropuncture set. 2nd radial access kit opened and dilator from radial access sheath inserted into L groin. Dilator from radial kit removed. 0.35 Glidesheath inserted over the wire. A 5 cuban JL4 catheter in over wire. Multiple views taken of left coronary artery. Catheter out. A 5 cuban JR4 catheter in over wire. Multiple views taken of right coronary artery. Catheter out. PCI Indication: NSTE. 6 cuban JR 4 guide catheter was inserted over the wire. Runthrough guidewire was advanced through the guide catheter to lesion in the mid RCA. Balloon inserted to lesion in the mid RCA. Balloon out. Guideliner catheter inserted. Balloon inserted to lesion in the mid RCA. ACT drawn. Results 197 seconds. Therapeutic limits - pre-heparin administration 90-150 seconds and monitoring heparin during a vascular procedure >250 seconds. Inflation number : 1 A AB TREK 2.50X12 RX BALLOON was prepped and advanced across the Mid RCA , then inflated to 12 SARI for 0:22 seconds. Inflation number: 2 The AB TREK 2.50X12 RX BALLOON was reinflated across the Mid RCA, to 12 SARI for 0:15 seconds. Balloon out. Results checked. Stent inserted to lesion in the mid RCA. Intact stent removed. Inflation number : 3 A AB TREK 3.00X12 RX BALLOON was prepped and advanced across the Mid RCA , then inflated to 14 SARI for 0:19 seconds. Balloon inserted to lesion in the mid RCA. Inflation number: 4 The AB TREK 3.00X12 RX BALLOON was reinflated across the Mid RCA, to 14 SARI for 0:13 seconds. Balloon out. Stent inserted to lesion in the mid RCA. Inflation Number : 5 A MDT R GREGORY 3.0X18 BUCK -Lot Number# [id number] Exp 05/08/2024 was prepped and advanced across the Mid RCA. The stent was deployed at 12 SARI for 0:20 seconds. Stent balloon out over wire. Results checked. Stent inserted to lesion in the mid RCA. Inflation Number : 6 A MDT R GREGORY 3.0X15 BUCK -Lot Number# [id number] Exp 03/29/24 was prepped and advanced across the Mid RCA. The stent was deployed at 14 SARI for 0:24 seconds. Stent balloon out over wire. Balloon inserted to lesion in the mid RCA. Inflation number : 7 A MDT NC EUPHORA RX 3.09O54QG BALLOON was prepped and advanced across the Mid RCA , then inflated to 16 SARI for 0:21 seconds. Inflation number: 8 The MDT NC EUPHORA RX 3.77G76JH BALLOON was reinflated across the Mid RCA, to 18 SARI for 0:25 seconds. Inflation number: 9 The MDT NC EUPHORA RX 3.29D61TY BALLOON was reinflated across the Mid RCA, to 18 SARI for 0:07 seconds. Balloon out. Results checked. Guideliner removed. Wire out. Results checked. Guide catheter out. 6 cuban XB 3.5 guide catheter was inserted over the wire. ACT drawn. Results 233 seconds. Therapeutic limits - pre-heparin administration 90-150 seconds and monitoring heparin during a vascular procedure >250 seconds. IFR positioned to prox LAD. IFR measurements recorded. Runthrough repositioned to prox LAD. IFR wire removed. Inflation number: 1 The MDT NC EUPHORA RX 3.95K36FJ BALLOON was reinflated across the Prox LAD, to 18 SARI for 0:11 seconds. Inflation number: 2 The MDT NC EUPHORA RX 3.27Y78VP BALLOON was reinflated across the Prox LAD, to 18 SARI for 0:16 seconds. Balloon inserted to lesion in the prox LAD. Inflation number: 3 The MDT NC EUPHORA RX 3.78N94BB BALLOON was reinflated across the Prox LAD, to 18 SARI for 0:17 seconds. Results checked. Balloon out. Stent inserted to lesion in the prox LAD. Inflation Number : 4 A MDT Resolute Gregory BUCK 4.0x30 -Lot Number# [id number] Exp 01/05/2022 was prepped and advanced across the Prox LAD. The stent was deployed at 12 SARI for 0:20 seconds. Stent balloon out over wire. Results checked. Stent inserted to lesion in the mid LAD. Inflation Number : 1 A MDT R GREGORY 3.5X22 BUCK -Lot Number# [id number] Exp 01/11/24 was prepped and advanced across the Mid LAD. The stent was deployed at 14 SARI for 0:25 seconds. Inflation number: 2 The stent balloon was then re-inflated across the Mid LAD to 18 SARI for 0:11 seconds. Stent balloon out over wire. Results checked. ACT drawn. Results 215 seconds. Therapeutic limits - pre-heparin administration 90-150 seconds and monitoring heparin during a vascular procedure >250 seconds. Guide catheter out. Wire out. A Suture was successful obtaining hemostatsis at the Left Femoral artery insertion site. Sheath(s) sutured into position with 2-0 silk and sterile 4x4's and Op-site applied over the site. No oozing or signs and symptoms of hematoma noted. Post Procedure: Pulses reassessed and unchanged. PERRLA. 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 No VTE prophylaxis required. Medication's Wasted: Lidocaine 1% = 10 mL. Medication's Wasted: Heparin = 2000 u. Medication's Wasted: Nitro = 48.5 mg. Total IV fluids: 155 mL. Post-op diagnosis: CAD. Complications: none. Estimated blood loss: 5mL-10mL. Responsiveness - Normal response to verbal stimuli; alert and oriented, PERRLA. Airway - Unaffected, no intervention required; spontaneous ventilation. Circulation: W/N/L, pulses unchanged. Nausea/Vomiting: No. Procedure completed. Patient transferred by bed to 1st floor. Vital chart was stopped. Access Site Site: Right Radial artery Sheath Size: 6 Fr Hemostasis Method: TR Band Hemostasis Success: Successful Site: Left Femoral artery Sheath Size: 6 Fr Hemostasis Method: Suture Hemostasis Success: Successful Procedure Medications Start: 9:47 AM Stop: 9:47 AM Medication: Versed Amount: 1 mg Route: I.V. Start: 9:47 AM Stop: 9:47 AM Medication: Fentanyl Amount: 25 mcg Route: I.V. Start: 9:52 AM Stop: 9:52 AM Medication: Nitrogylcerin Amount: 200 mcg Route: I.A. Start: 10:29 AM Stop: 10:29 AM Medication: Heparin Amount: 8000 units Route: I.V. Start: 10:40 AM Stop: 10:40 AM Medication: Heparin Amount: 3000 units Route: I.V. Start: 10:43 AM Stop: 10:43 AM Medication: Versed Amount: 1 mg Route: I.V. Start: 10:48 AM Stop: 10:48 AM Medication: Fentanyl Amount: 25 mcg Route: I.V. Start: 10:55 AM Stop: 10:55 AM Medication: Heparin Amount: 1000 units Route: I.V. Start: 11:04 AM Stop: 11:04 AM Medication: Nitrogylcerin Amount: 100 mcg Route: I.C. Start: 11:10 AM Stop: 11:10 AM Medication: Heparin Amount: 1000 units Route: I.V. Start: 11:17 AM Stop: 11:17 AM Medication: Versed Amount: 1 mg Route: I.V. Start: 11:40 AM Stop: 11:40 AM Medication: Nitrogylcerin Amount: 200 mcg Route: I.C. Start: 11:50 AM Stop: 11:50 AM Medication: Heparin Amount: 2000 units Route: I.V. Start: 11:51 AM Stop: 11:51 AM Medication: Plavix Amount: 600 mg Route: P.O. I, the attending physician, have reviewed and verified all procedure medications. Yes, all medications given per verbal order History/Risk Factors Hypertension: Yes Dyslipidemia: No Peripheral Arterial Disease (PAD): Yes Myocardial Infarction (PA): Yes Obesity: Yes Renal Disease: No Tobacco Use: Never Prior Interventions PCI: Yes CABG: No Valve Surgery: No Date of PCI: 04/21/2017 Report Signatures Finalized by Gonzales Brasher MD on 07/11/2021 05:47 PM
--- NOTE | 2021-06-26 09:44 | W.PM.OPSUD ---
Surgery/Procedure H&P Update DATE OF PROCEDURE: June 26, 2021 DATE H&P PERFORMED: 06/26/21 H&P UPDATE INFORMATION: I have reviewed H&P completed within last 30 days, I have examined patient prior to procedure and No changes to prior documentation PREOP DIAGNOSIS: NSTEMI PRIMARY INDICATION FOR PROCEDURE: NSTEMI PLANNED PROCEDURE: Left heart cath with possible percutaneous coronary intervention PATIENT REASSESSED PRIOR TO SEDATION, WITH NO CHANGE NOTED: Yes PHYSICAL EXAM: alert, oriented x 3, clear to auscultation bilaterally and regular rate & rhythm AIRWAY EVAL/ANESTHESIA PLAN: normal airway, ASA III, Monitored Anesthesia, Local Anesthesia, Risks, benefits & alternatives of sedation and/or procedure discussed and Patient agrees to continue as planned
--- NOTE | 2021-06-26 12:36 | P.MISC_ITS ---
Miscellaneous Note Purpose of Documentation: Brief interventional cardiology procedure Note Note: Indication: Non-ST elevation GA Procedure detail: Patient has severe proximal to mid LAD stenosis. Confirmed with IFR value of 0.47. He underwent successful revascularization with BUCK x2. RCA has severe proximal to mid and mid RCA stenosis. Underwent successful revascularization with BUCK x2. Has severely diseased peripheral vasculature. Has subtotal occlusion of in nominate artery and we could not advance catheter from right radial access. Has bilateral lower extremity peripheral bypasses. Right groin access could not be obtained as wire would not advance. Finally were able to successfully get access in the left groin. Has significant scar tissue. Recommendations: Aspirin and Plavix for atleast 1 year Aggressive risk factor modification including smoking cessation High intensity statin therapy
--- NOTE | 2021-06-26 14:00 | ECG_ITS ---
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 Measurements Intervals [place] Rate: 67 P: 79 WI: 161 QRS: -29 QRSD: 96 T: -16 QT: 389 QTc: 412 Interpretive Statements SINUS RHYTHM BORDERLINE LEFT AXIS DEVIATION [QRS AXIS < -20] MINIMAL ST DEPRESSION [0.025+ mV ST DEPRESSION] Compared to ECG 06/26/2021 06:06:34 ST (T wave) deviation now present Electronically Signed On 06-26-2021 17:29:15 SCHOOL SPEECH THERAPIST by Gonzales Brasher M.D. [id number]
--- NOTE | 2021-06-26 14:25 | XACV_ITS ---
Exam Room: [facility] Ht: 175 cm Wt: 104 kg BSA: 2.28 m2 Gender: Male : 1955 Any Known Allergies: Codeine Exam Priority: Routine Procedure(s): Procedure Description: Diagnostic procedure Procedure Description: PCI procedure Procedure Description: Drug Eluting Coronary Stent Procedure Description: PTCA Procedure Description: Coronary Angiography Diagnostic Cath Status: Emergency Diagnostic Findings * No significant disease noted in * RCA, LAD or left circumflex artery. * Patent prior stents. * Flow in the diagonal artery * which was present * on PCI done earlier on the same day * was * very sluggish with ostial pinching. * This was the culprit vessel * for current symptoms and EKG changes.. * 1st Diagonal: obstructive 99% stenosis, MATMA: 3 flow. * Indication: Patient had PCI of LAD and RCA. Few hours after the procedure he started complaining of severe chest pain. There were dynamic ST segment changes in lateral leads. He was emergently taken to the [facility] Telephone Clerk. * Coronary angiography shows right dominance. PCI Status: Urgent PCI Indication: Other Interventional Findings * Procedure detail: We engaged left main artery with XB 3.5 guide catheter. 0.014 run-through guidewire was used to cross into the diagonal artery through LAD stent struts. We predilated the ostial diagonal artery with 2.25 x 20 mm semicompliant balloon. This was followed by a 2.5 x 22 mm resolute Gregory stent placement as flow was not coming back. At this time diagonal artery flow was restored with MAMTA-3 flow, no residual stenosis and excellent stent expansion. Guidewire and guide catheter were removed. Patient left the [employer] Telephone Clerk in a stable condition.. * 1st Diagonal: 99% stenosis treated with a AB TREK 2.25X20 RX BALLOON, MONCHO R GREGORY 2.5X22 BUCK, and AB TREK 2.25X20 RX BALLOON. 0% residual stenosis, MAMTA: 3 flow. Conclusions 1. No significant disease noted in 2. RCA, LAD or left circumflex artery. 3. Patent prior stents. 4. Flow in the diagonal artery 5. which was present 6. on PCI done earlier on the same day 7. was 8. very sluggish with ostial pinching. 9. This was the culprit vessel 10. for current symptoms and EKG changes.. 11. 1st Diagonal was treated with a Balloon, Drug Eluting Stent, and Balloon. Recommendations * Transfer to CSU. * Continue aspirin and Plavix for at least 1 year. * High intensity statin therapy. * Outpatient cardiology follow-up in 4 weeks. Interventional RX Recommendation: PCI w/o planned CABG Diagnostic RX Recommendation: PCI w/o planned CABG Anticoagulation: Heparin Pressures Phase:Rest AO : 106 / 55 ( 76 ) @ 4:11:00 PM 116 / 60 ( 84 ) @ 4:20:00 PM 106 / 56 ( 77 ) @ 4:31:00 PM 118 / 59 ( 83 ) @ 4:39:00 PM Clinical Evaluation EBL: 5mL-10mL Procedural Details Pre-Procedure Time Out. Identified patient by full name and date of as verbalized by the patient/guarantor. Does the consent match the physician's order: N/A Emergent; Informed Consent not obtained due to time critical life threat. Accurate & Complete Informed Consent: N/A Emergent; Informed Consent not obtained due to time critical life threat. Inpatient/Outpatient History & Physical on Chart: N/A Emergent; Informed Consent not obtained due to time critical life threat. If H&P is completed, is and addenduem needed: N/A Emergent; Informed Consent not obtained due to time critical life threat; If yes, is the addendum complete: N/A Emergent; Informed Consent not obtained due to time critical life threat. Visualize and Verify Site with Patient/Guarantor: N/A. Relevant Radiology Images available: N/A Emergent; Informed Consent not obtained due to time critical life threat. Pre-op teaching completed and patient verbalized understanding. The risks, benefits, and alternatives of sedation and/or procedure were discussed by physician. The patient agrees to continue. Procedure started. [facility] Clinical Fraility Score: 3: Managing Well. [employer] Telephone Clerk Indications: Worsening Angina. Chest Pain Symptom Assessment: Typical Angina Symptoms. Cardiovascular Instability: Yes, if yes, Persistant Ischemic Symptoms. Correct patient, site and procedure confirmed by cath team. Current diagnosis: NSTEMI. PERRLA. Strong, equal hand learning facilitator bilaterally. Lungs clear x 5 lobes. IV Site on Arrival: 20 gauge in the left anticubital. IV Fluids: 0.9% NaCl at KVO. 100 mL infused prior to slab installer. Oxygen started at 5liters/min via nasal canula. left groin was prepped with chloroprep then draped in the usual sterile fashion. Physician notified. Baseline sample Acquired. HR: 56 BPM. Patient's family unavailable. Equipment: 6F - Femoral. Cardiac Cath Pack. ACIST Manifold Kit Model BT 2000. Heparinized Saline (2 units/mL), 1000 mL bag. Physician arrived. Physician scrubbed in. Immediate Pre-Procedure Time Out. Correct Patient: Yes; Correct Procedure: Yes; Correct Site: Yes; Correct Patient Position: Yes; Correct Supplies: Yes; Dried Flammable Prep: Yes; Blood Products Available: N/A;. A 5 british virgin islander JL4 catheter in over wire throught the existing 6 fr left femoral sheath. Multiple views taken of left coronary artery. Catheter removed over the standard wire. 6 british virgin islander JR 4 guide catheter was inserted over the wire. Add inventory: endoflator, Runthrough guidewire. cine of RCA performed. Guide catheter out. 6 british virgin islander XB 3.5 guide catheter was inserted over the wire. Runthrough guidewire was advanced through the guide catheter to lesion in the diaganol. ACT drawn. Results 146 seconds. Therapeutic limits - pre-heparin administration 90-150 seconds and monitoring heparin during a vascular procedure >250 seconds. Teacher Physically Impaired 50 guidewire was advanced through the guide catheter to lesion in the diaganol. Runthrough guidewire out. Inflation number : 1 A AB TREK 2.25X20 RX BALLOON was prepped and advanced across the 1st Diag , then inflated to 12 SARI for 0:20 seconds. Inflation number: 2 The AB TREK 2.25X20 RX BALLOON was reinflated across the 1st Diag, to 10 SARI for 0:12 seconds. Inflation number: 3 The AB TREK 2.25X20 RX BALLOON was reinflated across the 1st Diag, to 14 SARI for 0:16 seconds. Balloon out. Results checked. Inflation Number : 4 A MDLay R GREGORY 2.5X22 BUCK -Lot Number# [id number] was prepped and advanced across the 1st Diag. The stent was deployed at 20 SARI for 0:24 seconds. Exp 2023-12-29. Stent balloon out. Inflation number : 5 A AB TREK 2.25X20 RX BALLOON was prepped and advanced across the 1st Diag , then inflated to 16 SARI for 0:05 seconds. Inflation number: 6 The AB TREK 2.25X20 RX BALLOON was reinflated across the 1st Diag, to 16 SARI for 0:10 seconds. Balloon out. Wire out. Results checked. Guide catheter out. Physician scrubbed out. ACT drawn. Results 164 seconds. Therapeutic limits - pre-heparin administration 90-150 seconds and monitoring heparin during a vascular procedure >250 seconds. Sheath(s) sutured into position with 2-0 silk and sterile 4x4's and Op-site applied over the site. No oozing or signs and symptoms of hematoma noted. Arterial sheath flushed and connected to tranducer and pressure bag with heparinized saline. Post Procedure: Pulses reassessed and unchanged. PERRLA. Strong, equal hand learning facilitator bilaterally. No VTE prophylaxis required. Medication's Wasted: Lidocaine 1% = 20 mL. Medication's Wasted: Heparin = 3000 units. Total IV fluids: 50 mL. Post-op diagnosis: Subtotal occlusion of the diagonal s/p PCI. Complications: none. Estimated blood loss: 5mL-10mL. Responsiveness - Normal response to verbal stimuli; alert and oriented, PERRLA. Airway - Unaffected, no intervention required; spontaneous ventilation. Circulation: W/N/L, pulses unchanged. Nausea/Vomiting: No. Procedure completed. Patient transferred by bed to 1st floor. Vital chart was stopped. Procedure Medications Start: 2:59 PM Stop: 2:59 PM Medication: Versed Amount: 1 mg Route: I.V. Start: 2:59 PM Stop: 2:59 PM Medication: Fentanyl Amount: 50 mcg Route: I.V. Start: 3:10 PM Stop: 3:10 PM Medication: Heparin Amount: 4000 units Route: I.V. Start: 3:11 PM Stop: 3:11 PM Medication: Versed Amount: 1 mg Route: I.V. Start: 3:30 PM Stop: 3:30 PM Medication: Nitrogylcerin Amount: 200 mcg Route: I.C. Start: 3:32 PM Stop: 3:32 PM Medication: Fentanyl Amount: 25 mcg Route: I.V. Start: 3:33 PM Stop: 3:33 PM Medication: Versed Amount: 1 mg Route: I.V. Start: 3:37 PM Stop: 3:37 PM Medication: Nitrogylcerin Amount: 200 mcg Route: I.C. Start: 3:43 PM Stop: 3:43 PM Medication: Heparin Amount: 4000 units Route: I.V. I, the attending physician, have reviewed and verified all procedure medications. Yes, all medications given per verbal order History/Risk Factors Hypertension: Yes Dyslipidemia: No Peripheral Arterial Disease (PAD): Yes Myocardial Infarction (MA): Yes Obesity: Yes Renal Disease: No Tobacco Use: Never Prior Interventions PCI: Yes CABG: No Valve Surgery: No Date of PCI: 04/21/2017 Report Signatures Finalized by Gonzales Brasher MD on 07/11/2021 05:56 PM
[2021-06-26] MEDS: nitroglycerin drip 50 MG/250 ML PREMIX IV (14:28)
--- NOTE | 2021-06-26 14:28 | PM.PN ---
Subjective Subjective: Patient was seen this morning, no active chest pain, he tells me that he had many stents placed at [facility], he also has peripheral vascular stents, does report shortness of breath with exertion Vitals/I&O/Wt Last Vital Signs Temp 96.4 F L 06/26/21 07:47 Pulse 60 06/26/21 12:09 Resp 16 06/26/21 12:09 BP 150/98 06/26/21 12:09 Pulse Ox 91 06/26/21 12:09 Weight last 48 hrs Weight 103.464 kg Weight 103.873 kg Physical Exam Const: COMMON NORMALS: no acute distress and patient oriented x3 Resp: COMMON NORMALS: normal respiratory effort, No retractions, No use of accessory muscles and clear to auscultation bilaterally AUSCULTATION: clear to auscultation bilaterally Cardio: COMMON NORMALS: regular rate, regular rhythm, S1 normal heart sound present and S2 normal heart sound present RATE: regular rate RHYTHM: regular rhythm HEART SOUNDS: S1 normal heart sound present and S2 normal heart sound present GI: COMMON NORMALS: Normal to inspection, nondistended, normoactive bowel sounds present, Soft to palpation, non-tender and No hepatosplenomegaly present PALPATION: Yes Soft to palpation and Yes No hepatosplenomegaly present Extremity: COMMON NORMALS: no pedal edema Neuro: COMMON NORMALS: patient oriented x3 Psych: COMMON NORMALS: mental status grossly normal Data : 06/25/21 22:48 06/25/21 22:48 A&P Assessment and plan (1) Non-ST elevation MO (NSTEMI): Admit to CSU in view of NSTEMI. Given first dose of full dose Lovenox and aspirin 325 mg. Continue aspirin 81 mg p.o. daily, start atorvastatin 40 mg p.o. at bedtime. Obtain medication list, patient states he is also additionally on Plavix. States being compliant with all his medications but that his knows more details about his medication list. Continue anticoagulation with Lovenox 1 mg/kg every 12 hours. CTA negative for PE. Currently oxygen requirement between room air to 2 L/min which patient states is his baseline. As needed DuoNeb inhalation for COPD, not currently in exacerbation. Check echocardiogram Cardiology has been consulted from ER, pending evaluation. NPO for possible cath today records requested from [facility] related to last angiogram Type 2 diabetes mellitus, low-dose sliding scale Status: Acute Attestations Medical Necessity Statement*: Patient requires hospitalization for NSTEMI proceeding with coronary angiogram Coding Level of Care Code Acute Info Print Press Operator for Elaine Bedoya Diagnoses Non-ST elevation MO (NSTEMI) I21.4
--- NOTE | 2021-06-26 14:30 | ECG_ITS ---
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 Measurements Intervals [place] Rate: 64 P: 73 NH: 155 QRS: -28 QRSD: 92 T: -18 QT: 421 QTc: 434 Interpretive Statements SINUS RHYTHM BORDERLINE LEFT AXIS DEVIATION [QRS AXIS < -20] MINIMAL ST DEPRESSION [0.025+ mV ST DEPRESSION] Compared to ECG 06/26/2021 14:05:29 No significant changes Electronically Signed On 06-26-2021 17:35:25 HAND SLITTER by Gonzales Brasher M.D. [id number]
--- NOTE | 2021-06-26 16:09 | ECG_ITS ---
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 Measurements Intervals [place] Rate: 64 P: 76 CT: 161 QRS: 20 QRSD: 78 T: 24 QT: 404 QTc: 418 Interpretive Statements SINUS RHYTHM WITH OCCASIONAL SUPRAVENTRICULAR PREMATURE COMPLEXES MINIMAL ST DEPRESSION [0.025+ mV ST DEPRESSION] Compared to ECG 06/26/2021 14:38:09 No significant changes Electronically Signed On 06-26-2021 17:29:02 GARMENT ALTERATION EXAMINER by Gonzales Brasher M.D. [id number]
--- NOTE | 2021-06-26 19:47 | PC.NURSE ---
Around 1420: Patient found sitting up it bed c/o chest pain. Patient put back in bed, assessed patient, vitals stable. Sheath intact to left groin, patent, not drainage or hematoma noted. Notified Dr. Brasher, Sales Representative Business Courses. Orders received, see MAR and orders.
[2021-06-26 20:13] LABS: Partial Thromboplastin Time 120.2 SECONDS (23.9-36.7)
[2021-06-26] MEDS: fentaNYL 50 mcg/mL INJ 2mL IVP ×2 (20:23→22:49)
[2021-06-26 20:59] LABS: Glucose Point of Care 112 mg/dL (70-110)
[2021-06-26 21:30] LABS: Partial Thromboplastin Time 40.3 SECONDS (23.9-36.7)
[2021-06-27] VITALS (46 sets, daily range): BP systolic 116–167; BP diastolic 50–108; PULSE 62–96; RESP 16–34; TEMP 36.6–36.8; O2SAT 88–99
[2021-06-27] MEDS: acetaminophen 325 mg Tablet 650 MG PO (00:31)
[2021-06-27] MEDS: ALPRAZolam 0.5 mg Tablet 0.25 MG PO ×2 (00:32→23:27)
[2021-06-27] MEDS: sodium chloride 0.9% 1,000 ML 75 ML IV (01:08)
[2021-06-27 04:47] LABS: Basophils % 0.5 %; Eosinophils # 0.1 10^3/uL (0.0-0.8); Eosinophils % 1.6 %; Hematocrit 37.2 % (42.0-52.0); Hemoglobin 11.5 g/dL (11.7-16.6); Lymphocytes # 1.2 10^3/uL (0.8-4.8); Lymphocytes % 13.1 %; Mean Corpuscular HGB Conc 30.9 g/dL (30.0-36.0); Mean Corpuscular Hemoglobin 28.8 pg (28.0-34.0); Mean Platelet Volume 9.6 fL (7.4-10.4); Monocytes # 0.9 10^3/uL (0.2-0.9); Monocytes % 9.6 %; Neutrophils # 6.65 10^3/uL (1.8-7.7); Neutrophils % 74.9 %; Nucleated Red Blood Cells % 0 %; Platelet Count 188 10^3/cmm (130-400); Red Cell Distribution Width 13.1 % (12.1-15.1); White Blood Count 8.9 10^3/uL (4.0-10.0)
[2021-06-27 05:12] LABS: Alanine Aminotransferase 37 U/L (0-41); Albumin Level 3.5 g/dL (3.5-5.2); Alkaline Phosphatase 70 IU/L (40-130); Anion Gap 13.3 (5-19); Aspartate Amino Transferase 139 U/L (0-40); Blood Urea Nitrogen 11 mg/dL (8-23); Calcium 8.9 mg/dL (8.5-10.5); Carbon Dioxide 29 mmol/L (22-29); Chloride 100 mmol/L (98-107); Globulin 2.7 g/dL (1.3-4.6); Glomerular Filtration Rate 96.1 mL/min (90-130); Glucose 116 mg/dL (65-115); Magnesium 1.9 mg/dL (1.7-2.3); Osmolality Calculated 286 mOsm/kg (285-295); Phosphorus 3.3 mg/dL (2.5-4.5); Potassium 4.3 mmol/L (3.5-5.1); Sodium 138 mmol/L (136-145); Total Bilirubin 0.6 mg/dL (0.15-1.2); Total Protein 6.2 g/dL (6.6-8.7)
[2021-06-27 06:43] LABS: Glucose Point of Care 126 mg/dL (70-110)
--- NOTE | 2021-06-27 07:35 | XR_ITS ---
WS: [id number] PORTABLE CHEST HISTORY: sob COMPARISON: 06/25/2021 New increasing opacification centered over the RIGHT hilum. Increased soft tissue with stranding is n ew. There is additional mild interstitial thickening towards the lingula and RIGHT lung base. No pleu ral effusion or pneumothorax. Cardiac size: Normal size. Mediastinum/Aorta: Atherosclerosis aorta is mild. No osseous abnormality seen. XR/XR chest 1V portable [id number] IMPRESSION: 1. Interval development of increased opacification and stranding centered over the RIGHT hilum with interstitial thickening at the lung bases. Suspect develo ping pneumonia and/or edema. 2. Mild atherosclerosis aorta.
--- NOTE | 2021-06-27 07:36 | PM.PN ---
Subjective Subjective: Patient is doing well. He had successful revascularization of LAD and RCA yesterday. On the floor he had chest pain again and was taken back to the Farm Operations Technical Director. He was found to have plaque shift to the diagonal with occlusion. He underwent successful revascularization of diagonal artery with 1 stent. He denies any chest pain. Has shortness of breath which is chronic. Renal function is stable. Vitals/I&O/Wt Last Vital Signs Temp 98.1 F 06/27/21 03:55 Pulse 95 06/27/21 06:30 Resp 20 H 06/27/21 06:30 BP 116/67 06/27/21 06:30 Pulse Ox 92 06/27/21 06:30 06/26/21 06/27/21 06/27/21 22:59 06:59 14:59 Intake Total 170 / 171.05 1240 / 1411.05 Output Total 1050 / 1050 250 / 1300 Balance -880 / -878.95 990 / 111.05 Weight last 48 hrs Weight 228 lb 1.6 oz Weight 229 lb Physical Exam Narrative: GENERAL: Patient is alert, awake and oriented x3. [] NECK: No jugular vein distension. [] HEENT: No cyanosis. No icterus. No pallor. [] HEART: Regular S1 and S2. No murmur, rub or gallop. [] LUNGS: Clear to auscultate bilaterally. [] ABDOMEN: Soft, nontender and nondistended. Positive bowel sounds. No guarding, rebound or tenderness. [] CENTRAL NERVOUS SYSTEM: Grossly nonfocal. [] EXTREMITIES: Lower extremities with 1+ edema bilaterally. Pulses palpable in the lower extremities, both dorsalis pedis and posterior tibial. [] Data : 06/28/21 03:10 06/28/21 03:10 A&P Assessment and plan (1) Non-ST elevation VT (NSTEMI): Status: Acute (2) Coronary artery disease: Status: Acute (3) Hypertension: Status: Acute (4) Diabetes: Status: Acute Plan Patient underwent a successful revascularization of proximal to mid LAD, RCA and diagonal artery yesterday. Continue aspirin and Plavix Echo showed normal LV systolic function. We will continue monitoring renal function because of contrast load Concern for possible pneumonia. Management per primary team. Thank you for involving us with care of this patient. We will continue to follow. Please call with questions. Attestations Medical Necessity Statement*: Care expected to cross 2 midnights. 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
[2021-06-27] MEDS: pantoprazole DR 40 mg Tablet PO (08:28)
[2021-06-27] MEDS: FUROsemide 10 mg/mL SDV 4mL 40 MG IVP (08:28)
[2021-06-27] MEDS: metoprolol tartrate 25 mg Tablet 12.5 MG PO ×2 (08:29→23:27)
[2021-06-27] MEDS: aspirin 81 mg Chew Tablet PO (08:29)
[2021-06-27] MEDS: clopidogrel 75 mg Tablet PO (08:29)
--- NOTE | 2021-06-27 09:53 | PC.CHAP ---
Pastoral Care Encounter/Spiritual Assessment Type of Contact [] Declined wafer substrate tester visit [] Patient/Family/Request visit [] Outpatient visit [] Follow-up visit [] Physician referral [] Code/Alert [x] Routine visit [] Staff referral [] Actively dying [] Patient sleeping [] Family support [] [x] Out of room [] Palliative care [] [] Receiving care in room [] Pre-surgical visit [] Trauma [] Long length of stay [] ICU visit [] Other: Relational/Emotional Strength [] Patient feels connected with others/family/visitors/staff [] Distress [] Loneliness/isolation [] Abandonment Spirituality of Patient [] Person of Hailee [] Attends Temple of their Hailee [] Believes in Prayer [] Reads Bible or Rastafarian materials [] There are Spiritual issues to be addressed Balling Head Tender Interventions [x] Prayer [] Active listening [] Non-anxious presence [] Spiritual/emotional support [] Crisis/trauma care [] Spiritual counseling [] Bereavement support [] Provided bereavement packet [] Provided Bible/devotional materials [] Provided toy/stuffed animal, coloring book to patient or family member [] Provided Communion [] Anointing/[place] [] Salvation [x] Completed spiritual assessment [] Other: Impact on Illness or Injury [] Angry [] Fearful [] Anxious [] Often cries [] Exhaustion [] Unable to work [] Unable to attend islam [] Unable to walk/stand [] Unable to read [] Unable to drive [] Unable to eat/drink [] Unable to sleep [] Unable to be with family [] Patient intubated [] Other: Summary Time spent with patient
[2021-06-27 10:56] LABS: Glucose Point of Care 135 mg/dL (70-110)
--- NOTE | 2021-06-27 11:46 | PM.PN ---
Subjective Subjective: Patient was seen this morning, he does complain of shortness of breath, shortness of breath with exertion, is on to 4 L, he tells me the only only uses oxygen intermittently at home, no fevers overnight, has a cough Vitals/I&O/Wt Last Vital Signs Temp 98.0 F 06/27/21 07:30 Pulse 84 06/27/21 09:12 Resp 18 06/27/21 08:00 BP 151/94 06/27/21 07:30 Pulse Ox 88 L 06/27/21 11:16 06/26/21 06/27/21 06/27/21 22:59 06:59 14:59 Intake Total 170 / 171.05 1240 / 1411.05 156.85 / 156.85 Output Total 1050 / 1050 250 / 1300 225 / 225 Balance -880 / -878.95 990 / 111.05 -68.15 / -68.15 Weight last 48 hrs Weight 103.464 kg Weight 103.873 kg Physical Exam Const: COMMON NORMALS: no acute distress and patient oriented x3 Resp: COMMON NORMALS: normal respiratory effort, No retractions and No use of accessory muscles AUSCULTATION: crackles and wheezes Cardio: COMMON NORMALS: regular rate, regular rhythm, S1 normal heart sound present and S2 normal heart sound present RATE: regular rate RHYTHM: regular rhythm HEART SOUNDS: S1 normal heart sound present and S2 normal heart sound present GI: COMMON NORMALS: Normal to inspection, nondistended, normoactive bowel sounds present, Soft to palpation, non-tender and No hepatosplenomegaly present PALPATION: Yes Soft to palpation and Yes No hepatosplenomegaly present Extremity: COMMON NORMALS: no pedal edema Neuro: COMMON NORMALS: patient oriented x3 Psych: COMMON NORMALS: mental status grossly normal Data : 06/27/21 04:18 06/27/21 04:18 A&P Assessment and plan (1) Non-ST elevation ID (NSTEMI): Status post cardiac catheterization twice, for recurrent chest pain Status post drug-eluting stent to LAD x2 Status post drug-eluting stent to RCA x2 Continue aspirin, Plavix, statin CTA negative for PE. Currently oxygen requirement between room air to 4 L As needed DuoNeb inhalation for COPD, will hold off on steroids Full code Start Lovenox for DVT prophylaxis tonight Hypoxia -Secondary fluid overload, pneumonia -Lasix therapy -Start Zosyn -Ipratropium -Consult respiratory therapy Type 2 diabetes mellitus, low-dose sliding scale Status: Acute (2) Fluid overload: Status: Acute (3) Hypoxia: Status: Acute (4) Pneumonia: Status: Acute Attestations Medical Necessity Statement*: Patient requires hospitalization for NSTEMI, status post stenting, fluid overload, pneumonia Coding Level of Care Code Acute Regional Account Manager for [facility] Diagnoses Non-ST elevation ID (NSTEMI) I21.4 Fluid overload E87.70 Hypoxia R09.02 Pneumonia J18.9
[2021-06-27] MEDS: piperacillin-tazobactam 3.375 GM in sodium chloride 0.9% (plus) 50 ML IV ×2 (13:13→23:26)
[2021-06-27] MEDS: ipratropium-albuterol 3 mL Neb INHALATION ×2 (15:27→19:55)
[2021-06-27 17:07] LABS: Glucose Point of Care 106 mg/dL (70-110)
[2021-06-27] MEDS: budesonide 0.5 mg/2 mL Neb 0.25 MG INHALATION (19:54)
[2021-06-27] MEDS: temazepam 15 mg Capsule PO (23:26)
[2021-06-27] MEDS: enoxaparin 40 mg/0.4 mL Syringe SUBCUT (23:26)
[2021-06-27] MEDS: atorvastatin 40 mg Tablet PO (23:27)
[2021-06-28] VITALS (11 sets, daily range): BP systolic 84–128; BP diastolic 57–100; PULSE 58–105; RESP 10–34; TEMP 37; O2SAT 91–96
--- NOTE | 2021-06-28 03:13 | PC.NURSE ---
Pt lying in bed resting with eyes closed. Resp even and non-labored no distress noted. Pt had no c/o pain or discomfort at the present time. Call light in reach. Will continue to monitor.
[2021-06-28 03:33] LABS: Basophils % 0.4 %; Eosinophils # 0.2 10^3/uL (0.0-0.8); Eosinophils % 2.1 %; Hematocrit 41.3 % (42.0-52.0); Hemoglobin 12.9 g/dL (11.7-16.6); Lymphocytes # 1.2 10^3/uL (0.8-4.8); Lymphocytes % 16.4 %; Mean Corpuscular HGB Conc 31.2 g/dL (30.0-36.0); Mean Corpuscular Hemoglobin 29.1 pg (28.0-34.0); Mean Platelet Volume 9.3 fL (7.4-10.4); Monocytes # 0.8 10^3/uL (0.2-0.9); Monocytes % 10.3 %; Neutrophils # 5.16 10^3/uL (1.8-7.7); Neutrophils % 70.5 %; Nucleated Red Blood Cells % 0 %; Platelet Count 192 10^3/cmm (130-400); Red Blood Count 4.44 10^6/uL (4.1-5.3); Red Cell Distribution Width 13.2 % (12.1-15.1); White Blood Count 7.3 10^3/uL (4.0-10.0)
[2021-06-28 04:02] LABS: Alanine Aminotransferase 32 U/L (0-41); Albumin Level 3.8 g/dL (3.5-5.2); Alkaline Phosphatase 76 IU/L (40-130); Anion Gap 14.9 (5-19); Aspartate Amino Transferase 74 U/L (0-40); Blood Urea Nitrogen 12 mg/dL (8-23); Calcium 9.6 mg/dL (8.5-10.5); Carbon Dioxide 30 mmol/L (22-29); Chloride 100 mmol/L (98-107); Globulin 3.3 g/dL (1.3-4.6); Glomerular Filtration Rate 74.3 mL/min (90-130); Glucose 107 mg/dL (65-115); Magnesium 1.8 mg/dL (1.7-2.3); Osmolality Calculated 292 mOsm/kg (285-295); Phosphorus 3.6 mg/dL (2.5-4.5); Potassium 3.9 mmol/L (3.5-5.1); Sodium 141 mmol/L (136-145); Total Bilirubin 0.6 mg/dL (0.15-1.2); Total Protein 7.1 g/dL (6.6-8.7)
[2021-06-28] MEDS: piperacillin-tazobactam 3.375 GM in sodium chloride 0.9% (plus) 50 ML IV ×2 (05:13→10:56)
[2021-06-28] MEDS: budesonide 0.5 mg/2 mL Neb 0.25 MG INHALATION (07:32)
[2021-06-28 07:37] LABS: Glucose Point of Care 117 mg/dL (70-110)
--- NOTE | 2021-06-28 07:41 | P.PN_ITS ---
Subjective Subjective: Patient doing well. No chest pain today Vitals/I&O/Wt Last Vital Signs Temp 98.6 F 06/28/21 07:00 Pulse 75 06/28/21 07:38 Resp 18 06/28/21 07:32 BP 128/100 06/28/21 07:00 Pulse Ox 95 06/28/21 07:32 06/27/21 06/28/21 06/28/21 22:59 06:59 14:59 Intake Total 170 / 566.85 50 / 616.85 Output Total 600 / 825 Balance -430 / -258.15 50 / -208.15 Physical Exam Narrative: GENERAL: Patient is alert, awake and oriented x3. [] NECK: No jugular vein distension. [] HEENT: No cyanosis. No icterus. No pallor. [] HEART: Regular S1 and S2. No murmur, rub or gallop. [] LUNGS: Clear to auscultate bilaterally. [] ABDOMEN: Soft, nontender and nondistended. Positive bowel sounds. No guarding, rebound or tenderness. [] CENTRAL NERVOUS SYSTEM: Grossly nonfocal. [] EXTREMITIES: Lower extremities with 1+ edema bilaterally. Pulses palpable in the lower extremities, both dorsalis pedis and posterior tibial. [] Data : 06/28/21 03:10 06/28/21 03:10 A&P Assessment and plan (1) Non-ST elevation ND (NSTEMI): Status: Resolved (2) Coronary artery disease: Status: Acute (3) Hypertension: Status: Acute (4) Diabetes: Status: Acute Plan Patient underwent a successful revascularization of proximal to mid LAD, RCA and diagonal artery yesterday. Continue aspirin and Plavix Echo showed normal LV systolic function. Thank you for involving us with care of this patient. Outpatient cardiology follow up. Please call with questions. Attestations Medical Necessity Statement*: Care expected to cross 2 midnights. 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
[2021-06-28] MEDS: potassium chloride ER 20 mEq Tablet 40 MEQ PO (08:02)
[2021-06-28] MEDS: FUROsemide 10 mg/mL SDV 4mL 40 MG IVP (08:02)
[2021-06-28] MEDS: metoprolol tartrate 25 mg Tablet 12.5 MG PO (08:02)
[2021-06-28] MEDS: pantoprazole DR 40 mg Tablet PO (08:03)
[2021-06-28] MEDS: clopidogrel 75 mg Tablet PO (08:03)
[2021-06-28] MEDS: aspirin 81 mg Chew Tablet PO (08:03)
[2021-06-28] MEDS: metOLazone 5 MG Tablet PO (08:03)
--- NOTE | 2021-06-28 09:34 | PC.NURSE ---
0700 Pt sitting on side of bed. PIV to LFA hanging from venagard and ABT draining in bed. 20g PIV started to L hand without issue. ABT restarted. AAOx4. Will monitor. Bradycardia in 40's and 50's noted. notified and new orders to hold metoprolol. Awaiting BLE ultrasound
--- NOTE | 2021-06-28 10:28 | P.DS_ITS ---
Discharge Providers Date of Admission: 06/26/21 00:54 Date of Discharge: June 28, 2021 Attending Provider at Admission: Nikki Mace MD Attending Provider at Discharge: Jc Boyd MD Primary Care Provider: Elijah Maki DO Diagnoses at Discharge Discharge Diagnosis (1) Non-ST elevation SD (NSTEMI): Status: Acute (2) Coronary artery disease: Status: Acute (3) Hypertension: Status: Acute (4) Diabetes: Status: Acute Reason for Visit Reason for Visit: Possible Heart Attack Hospital Course Hospital Course This is a 66-year-old male with a past medical history of peripheral vascular disease status post stenting, hypertension, CAD status post stenting, active smoker, COPD, uses oxygen intermittently at home, 2 L, vitamin D deficiency, noninsulin-dependent type 2 diabetes mellitus, hyperlipidemia who presents [facility] due to chest pain Patient was admitted to [facility] for chest pain, NSTEMI, CT negative for pulmonary emboli, status post revascularization of LAD and RCA, had recurrent chest pain after procedure was taken back to the [employer], was found to have plaque shift to the diagonal with occlusion, underwent successful revascularization of the diagonal artery with 1 stent. No recurrent chest pain, clinically improved. Was discharged on aspirin, statin, Plavix, classes all wi th a close follow-up with cardiology as outpatient. His Imdur dose was decreased to 30 mg once a day. He did have sinus bradycardia developing with metoprolol 12.5 twice daily which was stopped. He will be switched to Coreg 3.125 twice daily. He also developed pulmonary edema with right sided pneumonia, was treated with antibiotic therapy, diuretic therapy, clinically improved, down to his 2 L. Discharged on Lasix 40 mg once a day with potassium replacement. Discharged with Augmentin for 7 days. Follow-up with primary care provider in 1 week. Physical Exam Const: COMMON NORMALS: no acute distress and patient oriented x3 Cardio: COMMON NORMALS: regular rate, regular rhythm, S1 normal heart sound present and S2 normal heart sound present RATE: regular rate RHYTHM: regular rhythm HEART SOUNDS: S1 normal heart sound present and S2 normal heart sound present GI: COMMON NORMALS: Normal to inspection, nondistended, normoactive bowel sounds present, Soft to palpation, non-tender and No hepatosplenomegaly present PALPATION: Yes Soft to palpation and Yes No hepatosplenomegaly present Extremity: NARRATIVE EXTREMITY EXAM: Left lower extremity 1+ pitting edema Neuro: COMMON NORMALS: patient oriented x3 Psych: COMMON NORMALS: mental status grossly normal Discharge Data Studies Completed and Pending Completed Studies During Hospitalization Category Date Time Status CTA chest [CT angio chest PE protcl [id number]] Urgent Cat Scan 06/25/21 23:11 Completed CXRP [XR chest 1V portable [id number]] Routine Exams 06/27/21 07:35 Completed XR chest 1V portable [id number] Stat Exams 06/25/21 22:40 Completed CV. 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 Negative for pulmonary embolus. 2. Scattered prominent mediastinal lymph nodes measuring up to 12.5 mm, nonspecific. 3. Bilateral renal cysts, negative for follow-up advised. 4. Mild emphysematous changes suspected. 5. Lingular atelectasis. 6. Coronary artery atherosclerotic calcifications. Chest X-Ray 06/27/21 07:35 IMPRESSION: 1. Interval development of increased opacification and stranding centered over the RIGHT hilum with interstitial thickening at the lung bases. Suspect developing pneumonia and/or edema. 2. Mild atherosclerosis aorta. Laboratory Results WBC 7.3 10^3/uL (4.0-10.0) 06/28/21 03:10 RBC 4.44 10^6/uL (4.1-5.3) 06/28/21 03:10 Hgb 12.9 g/dL (11.7-16.6) 06/28/21 03:10 Hct 41.3 % (42.0-52.0) L 06/28/21 03:10 MCV 93.0 fl (80-94) 06/28/21 03:10 MCH 29.1 pg (28.0-34.0) 06/28/21 03:10 MCHC 31.2 g/dL (30.0-36.0) 06/28/21 03:10 RDW 13.2 % (12.1-15.1) 06/28/21 03:10 Plt Count 192 10^3/cmm (130-400) 06/28/21 03:10 MPV 9.3 fL (7.4-10.4) 06/28/21 03:10 Neut % (Auto) 70.5 % 06/28/21 03:10 Lymph % (Auto) 16.4 % 06/28/21 03:10 Desha % (Auto) 10.3 % 06/28/21 03:10 Eos % (Auto) 2.1 % 06/28/21 03:10 Baso % (Auto) 0.4 % 06/28/21 03:10 Neut # (Auto) 5.16 10^3/uL (1.8-7.7) 06/28/21 03:10 Lymph # (Auto) 1.2 10^3/uL (0.8-4.8) 06/28/21 03:10 Desha # (Auto) 0.8 10^3/uL (0.2-0.9) 06/28/21 03:10 Eos # (Auto) 0.2 10^3/uL (0.0-0.8) 06/28/21 03:10 Baso # (Auto) 0.0 10^3/uL (0.0-0.1) 06/28/21 03:10 Nucleated RBC % (auto) 0 % 06/28/21 03:10 Nucleated RBCs # 0.0 /100WBC 06/28/21 03:10 PT 13.10 SECONDS (12.1-14.9) 06/25/21 22:48 INR 0.96 (0.8-1.2) 06/25/21 22:48 APTT 40.3 SECONDS (23.9-36.7) H D 06/26/21 21:08 D-Dimer 0.96 ug/mIFEU (0-0.59) H 06/25/21 22:48 Sodium 141 mmol/L (136-145) 06/28/21 03:10 Potassium 3.9 mmol/L (3.5-5.1) 06/28/21 03:10 Chloride 100 mmol/L (98-107) 06/28/21 03:10 Carbon Dioxide 30 mmol/L (22-29) H 06/28/21 03:10 Anion Gap 14.9 (5-19) 06/28/21 03:10 BUN 12 mg/dL (8-23) 06/28/21 03:10 Creatinine 1.0 mg/dL (0.7-1.2) 06/28/21 03:10 GFR Calculation 74.3 mL/min (90-130) L 06/28/21 03:10 Glucose 107 mg/dL (65-115) 06/28/21 03:10 POC Glucose 117 mg/dL (70-110) H 06/28/21 07:24 Estimat Average Glucose 123 06/26/21 00:44 Hemoglobin A1c 5.9 % (4.0-6.0) 06/26/21 00:44 Calculated Osmolality 292 mOsm/kg (285-295) 06/28/21 03:10 Calcium 9.6 mg/dL (8.5-10.5) 06/28/21 03:10 Phosphorus 3.6 mg/dL (2.5-4.5) 06/28/21 03:10 Magnesium 1.8 mg/dL (1.7-2.3) 06/28/21 03:10 Total Bilirubin 0.6 mg/dL (0.15-1.2) 06/28/21 03:10 AST 74 U/L (0-40) H 06/28/21 03:10 ALT 32 U/L (0-41) 06/28/21 03:10 Alkaline Phosphatase 76 IU/L (40-130) 06/28/21 03:10 Troponin T Baseline 404 ng/L (0-15) H* 06/25/21 22:48 Troponin T 120 Minute 439.4 ng/L (0-15) H 06/26/21 00:44 Delta Troponin T 35.4 ABS# (0-10) H* 06/26/21 00:44 Troponin T Hi Sens 6Hr 459.8 ng/L (0-15) H 06/26/21 04:30 Troponin T Hi Sens 6Hr Delta 55.8 ng/L (0-12) H* 06/26/21 04:30 NT-Pro-B Natriuret Pep 575 pg/mL (0-125) H 06/25/21 22:48 Total Protein 7.1 g/dL (6.6-8.7) 06/28/21 03:10 Albumin 3.8 g/dL (3.5-5.2) 06/28/21 03:10 Globulin 3.3 g/dL (1.3-4.6) 06/28/21 03:10 Triglycerides 183 mg/dL (0-150) H 06/26/21 00:44 Cholesterol 118 mg/dL (0-200) 06/26/21 00:44 LDL Cholesterol, Calc 28 mg/dL (50-129) L 06/26/21 00:44 HDL Cholesterol 53 mg/dL (60-100) L 06/26/21 00:44 LDL/HDL Ratio 0.53 RATIO (0.00-3.22) 06/26/21 00:44 Cholesterol/HDL Ratio 2.23 mg/dL (1.0-5.00) 06/26/21 00:44 Vitals Last Vital Signs Temp 98.6 F 06/28/21 07:00 Pulse 75 06/28/21 08:00 Resp 18 06/28/21 07:32 BP 128/100 06/28/21 07:00 Pulse Ox 95 06/28/21 07:32 Discharge Plan Discharge Patient Disposition: Home Condition: Stable Prescriptions: New pantoprazole 40 mg Tablet,Delayed Release (Dr/Ec) 40 mg PO DAILY 30 Days Qty: 30 0RF atorvastatin 40 mg Tablet 40 mg PO BEDTIME 30 Days Qty: 30 0RF carvedilol [Coreg] 3.125 mg tablet 3.125 mg PO BID 30 Days Qty: 60 0RF Rx Instructions: must administer with a meal/food nitroglycerin 0.4 mg Tablet, Sublingual 0.4 mg sublingual Q5M PRN (Reason: Chest Pain) 30 Days 0RF clopidogrel 75 mg Tablet 75 mg PO DAILY 30 Days Qty: 30 0RF aspirin [Children's Aspirin] 81 mg Tablet,Chewable 81 mg PO DAILY 30 Days Qty: 30 0RF amoxicillin-pot clavulanate [Augmentin] 875-125 mg tablet 1 tab PO BID 7 Days Qty: 14 0RF Continued cilostazol 100 mg Tablet 50 mg PO BID 0RF potassium chloride 10 mEq capsule, extended release 10 meq PO DAILY 0RF Tylenol Ex Str Rapid Release 500 mg Tablet 1,000 mg PO Q6H PRN (Reason: Pain) 0RF metformin 1,000 mg Tablet 500 mg PO BID 0RF gabapentin 300 mg capsule 300 mg PO QID 0RF Prilosec 20 mg Capsule,Delayed Release(Dr/Ec) 20 mg PO BID 0RF ProAir HFA 90 mcg/actuation Hfa Aerosol Inhaler 2 puff INHALATION Q4H PRN (Reason: Shortness Of Breath) 0RF lisinopril 40 mg Tablet 20 mg PO DAILY 0RF glipizide 5 mg Tablet 5 mg PO QAM 0RF Spiriva with HandiHaler 18 mcg Capsule, W/Inhalation Device 1 cap INHALATION DAILY 0RF Rx Instructions: puncture 1 cap using device; one dose = 2 inhalations Vitamin D3 50 mcg (2,000 unit) Capsule 50 mcg PO DAILY 0RF Changed furosemide 40 mg Tablet 40 mg PO DAILY Qty: 0 0RF isosorbide mononitrate 60 mg Tablet Extended Release 24 Hr 30 mg PO DAILY 30 Days Qty: 30 0RF Rx Instructions: 30 mg PO; Discontinued aspirin 325 mg Tablet 325 mg PO DAILY 0RF Plavix 75 mg Tablet 75 mg PO DAILY 0RF amlodipine 10 mg Tablet 10 mg PO DAILY 0RF metoprolol tartrate 50 mg Tablet 25 mg PO BID 0RF Nitrostat 0.4 mg Tablet, Sublingual 0.4 mg SUBLINGUAL Q5M PRN (Reason: Chest Pain) 0RF Rx Instructions: do not exceed 3 doses per episode naproxen 500 mg tablet 500 mg PO BID 0RF Crestor 10 mg Tablet 5 mg PO QPM 0RF Discharge Orders: Discharge Order (Routine); Ordered 06/28/21 Ordered By: Jc Boyd Other Ambulatory Orders: DME: Oxygen (Order) Location: None Selected Ordered By: Jc Boyd Referrals: Gonzales Brasher M.D [Physician] - 4-7 days Elijah Maki DO [Primary Care Provider] - Discharge Diet: Cardiac Discharge Activity: Resume usual activity Patient Instructions: Opioid Safety Activity Restrictions/Additional Instructions: -Please take aspirin, Plavix, statin as prescribed -Please do not stop taking aspirin and Plavix as these are keeping your heart stents open -If you develop bloody or black stools go to the emergency room -Take Lasix 40 mg once daily with potassium replacement -If you start to develop lower extremity swelling or feel more short of breath can increase it to 40 twice a day, with potassium 10 mEq twice a day for 3 days, if you still feel short of breath go and see primary care -Continue antibiotics for pneumonia -Please stop smoking - Discharge Attestations Time Spent in Discharge Care*: less than 30 min Quality Metrics Clinical Quality Measures [ Acute Myocardial Infaction { Clinical Trial Participant: No; Contraindication to aspirin: None; Aspirin prescribed; Contraindication to statin: None; Statin prescribed; Contraindication to PCI: None; PCI performed;}] Coding Level of Care Code Acute [facility] note Diagnoses Non-ST elevation SD (NSTEMI) I21.4 Coronary artery disease I25.10 Hypertension I10 Diabetes E11.9
--- NOTE | 2021-06-28 10:34 | USCV_ITS ---
Ignacio Shelton Age: 66 Gender: M : 1955 Exam Date: 06/28/2021 11:15 Ordering Phys: Jc Boyd MD Technologist: Gilles Guillen [place] [facility] [place] Indication: bilat edema PROCEDURES: The venous duplex Doppler examination of both lower extremities was performed in the standard fashion. The following venous structures were evaluated: common femoral vein, profunda vein, proximal portion of the greater saphenous vein, superficial femoral vein, and the popliteal vein. FINDINGS: Normal 2-D Doppler and augmentation and compressibility throughout the lower extremity venous structures. Additional imaging through the proximal calf veins also reveals no thrombus. Limited evaluation of the greater saphenous vein is patent with no thrombus. CONCLUSIONS No DVT bilateral lower extremities. Dr. Rebeca Hancock DO (Electronically Signed) Final Date: 28 June 2021 14:06 S
[2021-06-28 11:04] LABS: Glucose Point of Care 172 mg/dL (70-110)
--- NOTE | 2021-06-28 11:46 | PC.NURSE ---
DC instructions given, pt verbalizes understanding. Awaiting ride.
--- NOTE | 2021-06-28 15:38 | PC.NURSE ---
Attempted to call [facility] multiple times per pt request in order to obtain a travel form . This nurse and the charge nurse were unable to reach anyone that could assist us in that. Pt angry that we could not get that for him, explained several times to him that we tried with no success. Pt friend arrived at this time to take pt home. Pt dressed and wheeled to waiting vehicle per this nurse and assisted pt in loading into vehicle.
== END 2021-06-28 15:38 | disposition home or self-care (01) | DRG 246 ==
LOC: ER 23:59 → CSU 06-26 05:37
PROVIDERS: Internal Medicine; Admitting Provider Student in an Organized Health Care Education/Training Program; Emergency Provider Emergency Medicine; PCP Emergency Medicine Emergency Medical Services; Visit Provider Family Medicine
PROC: 027237Z Dilation of Coronary Artery, Three Arteries with Four or More Drug-eluting Intraluminal Devices, Percutaneous Approach (ICD-10-PCS; principal; 2021-06-26 09:00)
PROC: 027237Z Dilation of Coronary Artery, Three Arteries with Four or More Drug-eluting Intraluminal Devices, Percutaneous Approach (ICD-10-PCS; 2021-06-26 09:00)
DX: I21.4 Non-ST elevation (NSTEMI) myocardial infarction (principal); J18.9 Pneumonia, unspecified organism; I25.10 Atherosclerotic heart disease of native coronary artery without angina pectoris; Z95.5 Presence of coronary angioplasty implant and graft; E11.42 Type 2 diabetes mellitus with diabetic polyneuropathy; Z95.820 Peripheral vascular angioplasty status with implants and grafts; I10 Essential (primary) hypertension; F17.210 Nicotine dependence, cigarettes, uncomplicated; Z99.81 Dependence on supplemental oxygen; E55.9 Vitamin D deficiency, unspecified; E78.5 Hyperlipidemia, unspecified; Z79.84 Long term (current) use of oral hypoglycemic drugs
CPT/HCPCS: 36415; 36416; 71045; 71275; 80053; 80061; 82962; 83036; 83735; 83880; 84100; 84484; 85025; 85347; 85378; 85610; 85730; 93005; 93306; 93454; 93571; 93970; 94640; 96372; 99285; C1725; C1769; C1874; C1887; C1894; C9600; C9601; J1644; J1650; J1940; J2250; J2543; J3010; J3490; J7030; J7626; Q0163; Q9967

== ENCOUNTER → 2021-08-23 12:59 | Outpatient (BNVA) | payer OTHER, SELFPAY | PROVIDERS: PCP Emergency Medicine Emergency Medical Services; Visit Provider Internal Medicine Critical Care Medicine | DX: J44.9 Chronic obstructive pulmonary disease, unspecified (principal); J96.11 Chronic respiratory failure with hypoxia; F17.210 Nicotine dependence, cigarettes, uncomplicated; I49.9 Cardiac arrhythmia, unspecified; E11.8 Type 2 diabetes mellitus with unspecified complications; I25.10 Atherosclerotic heart disease of native coronary artery without angina pectoris; I11.0 Hypertensive heart disease with heart failure; I50.9 Heart failure, unspecified; Z79.84 Long term (current) use of oral hypoglycemic drugs | CPT/HCPCS: 36415; 80048; 83880; 99204; 99214 ==

== ENCOUNTER → 2021-12-06 08:27 | Outpatient (BNVA) | payer OTHER, SELFPAY | PROVIDERS: PCP Family Medicine; Visit Provider Internal Medicine Critical Care Medicine | DX: J44.9 Chronic obstructive pulmonary disease, unspecified (principal); J96.11 Chronic respiratory failure with hypoxia; F17.210 Nicotine dependence, cigarettes, uncomplicated; Z99.81 Dependence on supplemental oxygen | CPT/HCPCS: 99213; 99214 ==

== ENCOUNTER → 2021-12-10 08:51 | Outpatient (BNVA) | payer OTHER, SELFPAY | PROVIDERS: PCP Family Medicine; Visit Provider Nurse Practitioner Family | DX: I11.0 Hypertensive heart disease with heart failure (principal); I50.9 Heart failure, unspecified; I25.10 Atherosclerotic heart disease of native coronary artery without angina pectoris; F17.210 Nicotine dependence, cigarettes, uncomplicated | CPT/HCPCS: 99214 ==

== ENCOUNTER 2022-01-22 08:51 | Outpatient (CLI) | payer OTHER, SELFPAY ==
--- NOTE | 2022-01-22 14:17 | PFTS_ITS ---
Date of Study:01/22/22 Date of Dictation: MECHANICS: Forced vital capacity (FVC) is reduced. Forced expiratory volume in one second (FEV1) is reduced. FEV1/FVC is normal. FLOW VOLUME LOOP: Reduced flow at all lung volumes with scooping and narrowing. LUNG VOLUMES: Total lung capacity (TLC) is normal. Residual volume (RV) is increased. DIFFUSING CAPACITY FOR CARBON MONOXIDE: Mildly reduced. INTERPRETATION: The postbronchodilator spirometry is consistent with moderately severe restriction. There is no significant postbronchodilator response. Lung volumes are consistent with air trapping. The patient likely has a combination of both obstructive and restrictive ventilatory defects. Gas exchange (DLCO) is mildly reduced. MTDD
== END 2022-01-22 08:52 | disposition home or self-care (01) ==
LOC: RT 08:51
PROVIDERS: PCP Family Medicine; Visit Provider Internal Medicine Critical Care Medicine
DX: J44.9 Chronic obstructive pulmonary disease, unspecified (principal)
CPT/HCPCS: 94060; 94618; 94726; 94729; J7611

== ENCOUNTER → 2022-05-27 14:25 | Outpatient (BNVA) | payer OTHER, SELFPAY | PROVIDERS: PCP Family Medicine; Visit Provider Internal Medicine Pulmonary Disease | DX: J44.9 Chronic obstructive pulmonary disease, unspecified (principal); F17.210 Nicotine dependence, cigarettes, uncomplicated; J96.11 Chronic respiratory failure with hypoxia; Z99.81 Dependence on supplemental oxygen | CPT/HCPCS: 99214 ==

== ENCOUNTER → 2022-07-04 14:44 | Outpatient (BNVA) | payer OTHER, SELFPAY | PROVIDERS: PCP Family Medicine; Referring Provider Family Medicine; Visit Provider Orthopaedic Surgery | DX: M47.816 Spondylosis without myelopathy or radiculopathy, lumbar region (principal); M48.062 Spinal stenosis, lumbar region with neurogenic claudication | CPT/HCPCS: 72120; 99204 ==

== ENCOUNTER → 2022-08-21 09:49 | Outpatient (BNVA) | payer OTHER, SELFPAY | PROVIDERS: PCP Family Medicine; Visit Provider Anesthesiology Pain Medicine | DX: M48.062 Spinal stenosis, lumbar region with neurogenic claudication (principal) | CPT/HCPCS: 99205 ==

== ENCOUNTER 2022-09-23 13:41 | Outpatient (CLI) | payer OTHER, SELFPAY ==
--- NOTE | 2022-09-23 14:30 | MR_ITS ---
WS: [id number] MRI LUMBAR SPINE NONCONTRAST HISTORY: M48.062 - Spinal stenosis, lumbar region with neurogenic ... COMPARISON: 04/02/2022 TECHNIQUE: Sagittal and axial multisequence imaging is submitted. Cervix and entire spine demonstrates disc bulging, osteophytes and facet arthritis causing at least a mild cervical stenosis at C3-4, C4-5 and C5-6. Additional disc bulges and protrusions in the thoraci c spine beginning at T5-6 through T10-11. Mild LEFT curvature lumbar spine. Disc spaces are narrowed. No marrow edema or fracture. Conus terminates normally at L1. L1-L2: Asymmetric disc bulging greatest to the LEFT. Broad-based LEFT foraminal disc protrusion. Mild encroachment upon the ventral thecal sac. Additional LEFT paracentral disc protrusion causing mild L EFT subarticular recess encroachment. Mild LEFT foraminal stenosis. L2-L3: Marked annular disc bulging with mild osteophytic ridging and mild facet arthritis. Moderate t o severe central, bilateral subarticular recess with mild bilateral foraminal stenosis, RIGHT greater than LEFT. L3-L4: Marked annular disc bulging with osteophytic ridging and severe ligamentum flavum and facet ar thritis. Severe central, bilateral subarticular recess and moderate to severe foraminal stenosis. The re is significant encroachment upon the L3 and L4 nerve roots bilaterally. L4-L5: Diffuse annular disc bulging with effacement of CSF. Severe ligamentum flavum and facet arthri tis. Suspect there are additional disc protrusions contributing to the stenosis. Severe central, bila teral subarticular recess and RIGHT foraminal stenosis. Moderate to severe LEFT foraminal stenosis. L5-S1: Annular disc bulge with a central disc protrusion. Ligamentum flavum and facet arthritis. Roxana re LEFT and moderate RIGHT foraminal stenosis. Atherosclerosis aorta. RIGHT renal cyst. LEFT renal cyst also noted on the prior study but there is m otion artifact obscuring detail. MR/MR lumbar spine wo con* [id number] IMPRESSION: 1. Multilevel severe stenoses as described above. No obvious progression of di sease since the prior study. 2. Severe central, bilateral subarticular recess and moderate to severe forami nal stenosis at L3-4. Marked encroachment upon the L3 and L4 nerve roots. 3. Severe central, bilateral subarticular recess and RIGHT foraminal stenosis at L4-5 with moderate to severe LEFT foraminal stenosis. Significant encroachme nt upon the L4 and L5 nerve roots. 4. Severe LEFT and moderate RIGHT foraminal stenosis at L5-S1. Significant enc roachment upon the L5 and S1 nerve roots are greatest on the LEFT. 5. Mild LEFT subarticular recess and LEFT foraminal stenosis at L1-2. 6. Moderate to severe central, bilateral subarticular recess and mild foramina l stenosis at L2-3. RIGHT greater than LEFT. 7. Additional disc protrusions and bulges in the cervical and thoracic spine.
== END 2022-09-23 13:42 | disposition home or self-care (01) ==
PROVIDERS: PCP Family Medicine; Visit Provider Anesthesiology Pain Medicine
DX: M48.062 Spinal stenosis, lumbar region with neurogenic claudication (principal); M51.26 Other intervertebral disc displacement, lumbar region; M51.24 Other intervertebral disc displacement, thoracic region; M50.20 Other cervical disc displacement, unspecified cervical region
CPT/HCPCS: 72148; 99205

== ENCOUNTER → 2022-10-02 10:59 | Outpatient (BNVA) | payer OTHER, SELFPAY | PROVIDERS: PCP Family Medicine; Visit Provider Anesthesiology Pain Medicine | DX: M48.062 Spinal stenosis, lumbar region with neurogenic claudication (principal); M47.816 Spondylosis without myelopathy or radiculopathy, lumbar region; J44.9 Chronic obstructive pulmonary disease, unspecified; I50.9 Heart failure, unspecified | CPT/HCPCS: 99215 ==